=== PATIENT | female | born 1970 | race Caucasian/White ===

== ENCOUNTER → 2018-06-08 14:11 | Outpatient (CLI) | payer BC, SELFPAY ==
--- NOTE | 2018-06-08 14:13 | DI.US.S_ITS ---
PROCEDURE: US BREAST RT LIMITED COMPARISON: None. INDICATIONS: RIGHT BREAST LUMP FINDINGS: IMPRESSION: Dictated by: Meghan Stephenson M.D. on 06/08/2018 at 15:31 Approved by: Meghan Stephenson M.D. on 06/08/2018 at 15:33
--- NOTE | 2018-06-08 15:33 | DI.US.S_ITS ---
Patient Name: DIONNE MUSE date: 1970 Sex: F Attending Physician: Wilmar Indications: Date: 06/08/2018 14:16 At the request of: CHRISTINA ROJAS Procedure: US breast RT limited ULTRASOUND OF RIGHT BREAST: 06/08/2018 CLINICAL: Palpable right breast lump. Comparison is made to exams dated: 07/27/2017 ultrasound, 07/27/2017 mammogram, mammogram, 06/12/2014 mammogram, and 05/20/2013 mammogram - [facility]. Color flow ultrasound of the right breast was performed on the areas of interest. Moe scale images of the real-time examination were reviewed. There is a benign 3.9 cm x 2.7 cm x 3.4 cm oval simple cyst in the right breast at 11 o'clock middle depth. This oval simple cyst is anechoic with posterior acoustic enhancement. This correlates as palpated. Color flow imaging demonstrates that there is no increase in vascularity. IMPRESSION: BENIGN There is no sonographic evidence of malignancy. The 3.9 cm x 2.7 cm x 3.4 cm oval simple cyst in the right breast is benign. This exam was interpreted at Station ID: [id number]. Electronically Signed By: Meghan okeefe/:06/08/2018 15:33:36 letter sent: Normal Exam Ultrasound BI-RADS: 2 Benign
== END ==
PROVIDERS: Visit Provider Surgery
DX: N60.01 Solitary cyst of right breast (principal)
CPT/HCPCS: 76642

== ENCOUNTER → 2018-08-16 14:43 | Outpatient (CLI) | payer BC, SELFPAY ==
--- NOTE | 2018-08-16 | DI.MG.S_ITS ---
BILATERAL DIGITAL DIAGNOSTIC MAMMOGRAM 3D/2D POST LUMPECTOMY: 08/16/2018 CLINICAL: Right breast lumps. Comparison is made to exams dated: 09/06/2017 localization, 07/27/2017 mammogram, 08/13/2015 mammogram, and 07/27/2017 [facility]. The tissue of both breasts is extremely dense, which lowers the sensitivity of mammography. There is a high density mass in the right breast at 11 o'clock posterior depth. This is not significantly changed from the mammogram dated 07/27/17 and correlates as palpated. No other significant masses, calcifications, or other findings are seen in either breast. IMPRESSION: INCOMPLETE: NEEDS ADDITIONAL IMAGING EVALUATION The high density mass in the right breast is indeterminate. An ultrasound is recommended. This exam was interpreted at Station ID: [id number]. NOTE: For mammograms, a report in lay terms will be sent to the patient. Approximately 15% of breast malignancies will not be visualized mammographically. In the management of a palpable breast mass, a negative mammogram must not discourage biopsy of a clinically suspicious lesion. Electronically Signed By: Meghan Stephenson M.D. lk/:08/16/2018 15:42:01 copy to: Raya Aviles copy to: Barbara Urban letter sent: Additional Imaging Needed ACR BI-RADS Category 0: Incomplete 3340F
--- NOTE | 2018-08-16 | DI.US.S_ITS ---
ULTRASOUND OF RIGHT BREAST: 08/16/2018 CLINICAL: Palpable right breast lump. Comparison is made to exams dated: 08/16/2018 mammogram, 06/08/2018 ultrasound, and 07/27/2017 [facility]. Color flow ultrasound of the right breast was performed on the areas of interest. Moe scale images of the real-time examination were reviewed. There is a benign simple cyst in the right breast at 11 o'clock posterior depth. This abnormality is decreased in size from the 06/08/18 ultrasound and correlates as palpated. There also is a benign simple cyst in the right breast at 12 o'clock posterior depth. This abnormality is decreased in size from the 06/08/18 ultrasound. IMPRESSION: BENIGN There is no sonographic evidence of malignancy. The cyst in the right breast at 11 o'clock posterior depth is benign. THe cyst in the right breast at 12 o'clock posterior depth is benign. A 1 year screening mammogram is recommended. This exam was interpreted at Station ID: [id number]. Electronically Signed By: Meghan Stephenson M.D. lk/:08/16/2018 16:30:03 copy to: Raya Aviles copy to: Barbara Urban letter sent: Normal Exam Ultrasound BI-RADS: 2 Benign
== END ==
PROVIDERS: Visit Provider Internal Medicine Hematology & Oncology
DX: R92.2 Inconclusive mammogram (principal); N63.11 Unspecified lump in the right breast, upper outer quadrant
CPT/HCPCS: 76642; 77066; G0279

== ENCOUNTER → 2018-08-30 13:08 | Outpatient (CLI) | payer BC, SELFPAY ==
[2018-08-30 13:41] LABS: Add Manual Diff / Slide Review NO; Basophils Percent Auto 0.7 % (0-2); Eosinophils Percent Auto 3.5 % (2-4); Hematocrit 39.5 % (36-46); Hemoglobin 13.5 g/dL (12.0-16.0); Lymphocytes Percent Auto 25.9 % (25-40); Mean Corpuscular HGB Conc 34.1 % (30-36); Mean Corpuscular Hemoglobin 31.4 PG (26-34); Monocytes Percent Auto 5.8 % (3-14); Neutrophils Absolute Auto 4100 /uL (3000-5900); Neutrophils Percent Auto 64.1 % (50-75); Platelet Count 231 X10^3/uL (150-400); Red Blood Cell Count 4.29 X10^6/uL (4.0-5.2); Red Cell Distribution Width 12.3 % (11.6-14.8); White Blood Cell Count 6.4 X10^3/uL (4.5-11.0)
[2018-08-30 13:51] LABS: HEMOLYSIS < 15 (0-50); Iron 136 ug/dL (37-170)
[2018-08-30 14:03] LABS: Percent Iron Saturation 48 % (15-50); Total Iron Binding Capacity 281 ug/dL (265-497); Transferrin 231 mg/dL (206-381)
[2018-08-30 14:22] LABS: Thyroid Stimulating Hormone 1.09 uIU/mL (0.47-4.68)
== END ==
PROVIDERS: PCP Physician Assistant; Visit Provider Physician Assistant
DX: R53.83 Other fatigue (principal)
CPT/HCPCS: 36415; 82728; 83540; 83550; 84439; 84443; 85025

== ENCOUNTER → 2019-08-04 12:58 | Outpatient (CLI) | payer BC, SELFPAY | PROVIDERS: PCP Physician Assistant; Visit Provider Physician Assistant | DX: L08.9 Local infection of the skin and subcutaneous tissue, unspecified (principal) | CPT/HCPCS: 87070; 87075; 87205 ==

== ENCOUNTER → 2019-08-06 17:03 | Outpatient (CLI) | payer BC, SELFPAY | PROVIDERS: PCP Physician Assistant; Visit Provider Physician Assistant | DX: L08.9 Local infection of the skin and subcutaneous tissue, unspecified (principal) | CPT/HCPCS: 87070; 87075; 87205 ==

== ENCOUNTER → 2019-08-13 16:26 | Outpatient (CLI) | payer BC, SELFPAY ==
[2019-08-13 17:34] LABS: Add Manual Diff / Slide Review NO; Basophils Absolute Auto 100 /uL (0-100); Basophils Percent Auto 1.2 % (0-2); Eosinophils Absolute Auto 300 /uL (0-450); Eosinophils Percent Auto 5.3 % (2-4); Hematocrit 40.5 % (36-46); Hemoglobin 13.8 g/dL (12.0-16.0); Lymphocytes Absolute Auto 1700 /uL (1100-4500); Lymphocytes Percent Auto 28.7 % (25-40); Mean Corpuscular HGB Conc 34.1 % (30-36); Mean Corpuscular Hemoglobin 31.8 PG (26-34); Mean Corpuscular Volume 93.1 fL (80-100); Monocytes Absolute Auto 400 /uL (0-900); Neutrophils Absolute Auto 3500 /uL (1500-7000); Neutrophils Percent Auto 57.8 % (50-75); Platelet Count 239 X10^3/uL (150-400); Red Blood Cell Count 4.35 X10^6/uL (4.0-5.2); Red Cell Distribution Width 12.1 % (11.6-14.8)
== END ==
PROVIDERS: Family Provider Physician Assistant; PCP Physician Assistant; Visit Provider Hospitalist
DX: L08.9 Local infection of the skin and subcutaneous tissue, unspecified (principal)
CPT/HCPCS: 36415; 85025

== ENCOUNTER → 2019-09-18 14:46 | Outpatient (CLI) | payer BC, SELFPAY ==
--- NOTE | 2019-09-18 | DI.MG.S_ITS ---
BILATERAL DIGITAL DIAGNOSTIC MAMMOGRAM 3D/2D: 09/18/2019 CLINICAL: Left breast cancer. Comparison is made to exams dated: 08/16/2018 mammogram, 07/27/2017 mammogram, and 08/13/2015 mammogram - [facility]. The tissue of both breasts is heterogeneously dense. This may lower the sensitivity of mammography. There are benign calcifications in both breasts. There also are benign post operative findings in the left breast. No significant masses, calcifications, or other findings are seen in either breast. There has been no significant interval change. IMPRESSION: There is no mammographic evidence of malignancy. A 1 year screening mammogram is recommended. This exam was interpreted at Station ID: [id number]. NOTE: For mammograms, a report in lay terms will be sent to the patient. Approximately 15% of breast malignancies will not be visualized mammographically. In the management of a palpable breast mass, a negative mammogram must not discourage biopsy of a clinically suspicious lesion. Electronically Signed By: Meghan okeefe/percy:09/18/2019 15:22:58 copy to: Raya Aviles copy to: Barbara Urban letter sent: Normal Exam ACR BI-RADS Category 2: Benign Finding(s) 3342F
== END ==
PROVIDERS: PCP Physician Assistant; Visit Provider Internal Medicine Hematology & Oncology
DX: C50.912 Malignant neoplasm of unspecified site of left female breast (principal); R92.1 Mammographic calcification found on diagnostic imaging of breast
CPT/HCPCS: 77066; G0279

== ENCOUNTER → 2020-01-04 09:05 | Outpatient (CLI) | payer BC, SELFPAY ==
[2020-01-04 09:50] LABS: Influenza A - CEPHEID Flu A NEGATIVE (NEGATIVE); Influenza B - CEPHEID Flu B NEGATIVE (NEGATIVE)
== END ==
PROVIDERS: PCP Physician Assistant; Visit Provider Physician Assistant
DX: R68.89 Other general symptoms and signs (principal)
CPT/HCPCS: 87502

== ENCOUNTER → 2020-07-10 09:16 | Outpatient (CLI) | payer BC, SELFPAY ==
--- NOTE | 2020-07-10 09:18 | DI.US.S_ITS ---
PROCEDURE: US ABDOMEN LIMITED INDICATIONS: ELEVATED LFT'S TECHNIQUE: Real-time focused scanning was performed of the abdomen, with image documentation. COMPARISON: None. FINDINGS: The liver demonstrates normal size. The liver demonstrates generalized increased echogenicity. This decreases ultrasound sensitivity for detection of hepatic masses. No findings of gallstones or sludge are seen. The gallbladder wall is not thickened, measuring 3 mm or less. No specific pericholecystic fluid is seen. The sonographic Valladares sign is negative. There is no biliary dilatation, the common bile duct measures 5 mm. The visualized pancreas is unremarkable. IMPRESSION: The liver demonstrates increased echogenicity. This finding is nonspecific, yet it is most commonly attributed to fatty infiltration. The gallbladder demonstrates a normal sonographic appearance. No biliary dilatation is seen. Dictated by: Koby Ward M.D. on 07/10/2020 at 11:30 Approved by: Koby Ward M.D. on 07/10/2020 at 11:30
== END ==
PROVIDERS: PCP Physician Assistant; Referring Provider Internal Medicine Hematology & Oncology; Visit Provider Internal Medicine Hematology & Oncology
DX: R79.89 Other specified abnormal findings of blood chemistry (principal); C50.111 Malignant neoplasm of central portion of right female breast; Z17.0 Estrogen receptor positive status [ER+]
CPT/HCPCS: 76705

== ENCOUNTER → 2020-10-02 08:26 | Outpatient (CLI) | payer BC, SELFPAY ==
--- NOTE | 2020-10-02 | DI.MG.S_ITS ---
BILATERAL DIGITAL SCREENING MAMMOGRAM 3D/2D WITH CAD: 10/02/2020 CLINICAL: Routine screening. Personal history of left breast cancer. Family history of breast cancer. Comparison is made to exams dated: 09/18/2019 mammogram, 08/16/2018 mammogram, and 07/27/2017 mammogram - [facility]. The tissue of both breasts is heterogeneously dense. This may lower the sensitivity of mammography. Current study was also evaluated with a Computer Aided Detection (CAD) system. There are stable benign cysts in the right breast. There also are stable benign calcifications in both breasts. Additionally, there are benign post operative findings in the left breast. No significant masses, calcifications, or other findings are seen in either breast. There has been no significant interval change. IMPRESSION: BENIGN There is no mammographic evidence of malignancy. A 1 year screening mammogram is recommended. This exam was interpreted at Station ID: [id number]. NOTE: For mammograms, a report in lay terms will be sent to the patient. Approximately 15% of breast malignancies will not be visualized mammographically. In the management of a palpable breast mass, a negative mammogram must not discourage biopsy of a clinically suspicious lesion. Electronically Signed By: Itz ruiz/percy:10/02/2020 09:49:46 copy to: Raya Aviles copy to: Barbara Urban letter sent: Normal Exam ACR BI-RADS Category 2: Benign Finding(s) 3342F
== END ==
PROVIDERS: PCP Family Medicine; Referring Provider Family Medicine; Visit Provider Internal Medicine Hematology & Oncology
DX: Z12.31 Encounter for screening mammogram for malignant neoplasm of breast (principal); Z85.3 Personal history of malignant neoplasm of breast; Z80.3 Family history of malignant neoplasm of breast
CPT/HCPCS: 77063; 77067

== ENCOUNTER 2021-06-17 16:17 | Observation (INO) | payer BC, SELFPAY ==
[2021-06-17 16:38] VITALS: BP 134/60; PULSE 77; RESP 16; TEMP 36.2; O2SAT 100; BMI 29.7
[2021-06-17] MEDS: ONDANSETRON 4 MG/2 ML INJ IV (17:26)
[2021-06-17] MEDS: SODIUM CHLORIDE 0.9% 1,000 ML 1000 ML IV (17:26)
[2021-06-17 17:28] LABS: COVID19 -Nasal RAPID Negative (Negative)
--- NOTE | 2021-06-17 17:29 | PC.NURSE ---
No bloody stool or emesis noted by patient
[2021-06-17 17:38] LABS: Alanine Aminotransferase 62 IU/L (<35); Albumin 4.4 g/dL (3.5-5.0); Albumin Globulin Ratio 1.4 (1.0-2.8); Alkaline Phosphatase 63 U/L (38-126); Aspartate Aminotransferase 59 IU/L (14-36); BUN Creatinine Ratio 19.6 (6-22); Bilirubin Total 1.1 mg/dL (0.2-1.3); Blood Urea Nitrogen 11 mg/dL (7-17); Calcium 9.4 mg/dL (8.4-10.2); Carbon Dioxide 22 mmol/L (22-32); Chloride 104 mmol/L (98-107); Estimated Glomerular Filt Rate > 60.0 mL/min (>60); Globulin 3.2 g/dL (1.7-4.1); Glucose 131 mg/dL (70-100); HEMOLYSIS < 15 (0-50); Lipase 37 U/L (23-300); Potassium 3.7 mmol/L (3.4-5.1); Sodium 137 mmol/L (137-145); Total Protein 7.6 g/dL (6.3-8.2)
[2021-06-17 17:40] LABS: Add Manual Diff / Slide Review NO; Basophils Absolute Auto 0 /uL (0-100); Basophils Percent Auto 0.3 % (0-2); Eosinophils Absolute Auto 0 /uL (0-450); Eosinophils Percent Auto 0.3 % (2-4); Hematocrit 41.6 % (36-46); Hemoglobin 14.2 g/dL (12.0-16.0); Lymphocytes Absolute Auto 1400 /uL (1100-4500); Lymphocytes Percent Auto 10.2 % (25-40); Mean Corpuscular HGB Conc 34.2 % (30-36); Mean Corpuscular Hemoglobin 32.2 PG (26-34); Monocytes Absolute Auto 500 /uL (0-900); Monocytes Percent Auto 3.4 % (3-14); Neutrophils Absolute Auto 11700 /uL (1500-7000); Neutrophils Percent Auto 85.8 % (50-75); Platelet Count 231 X10^3/uL (150-400); Red Blood Cell Count 4.42 X10^6/uL (4.0-5.2); Red Cell Distribution Width 12.2 % (11.6-14.8); White Blood Cell Count 13.7 X10^3/uL (4.5-11.0)
--- NOTE | 2021-06-17 19:24 | ED.GENADULT ---
HPI - General Adult General Chief complaint: Abdominal Pain Stated complaint: Severe Stomach Cramps, Vomiting Time Seen by Provider: 06/17/21 19:19 Source: patient Mode of arrival: Ambulatory Limitations: no limitations History of Present Illness HPI narrative: Patient is a 50-year-old female who is here today for stomach cramping and vomiting and fevers and chills and nausea. She states that last evening she went to bed not feeling very well but this was a very vague generalized feeling. Woke up this morning with nausea and then at around noon today started to develop fevers and vomiting and chills and lower abdominal discomfort. No vaginal bleeding. No diarrhea however with further questioning she states she has had diarrhea for a while and is taking Imodium for this. She does have a history of breast cancer. Is on tamoxifen. She states the vomiting did seem to help her abdominal discomfort somewhat. No rashes. Has not tried anything for symptoms prior to arrival. Related Data Home Medications Medication Instructions Recorded Confirmed fluticasone propionate 50 1 spray INTRANASAL QDAY #0 09/04/17 06/18/21 mcg/actuation nasal spray,suspension (Flonase Allergy Relief) tamoxifen 20 mg tablet 20 mg PO BEDTIME #30 02/02/18 06/18/21 gabapentin 300 mg capsule 300 mg PO DAILY 06/17/21 06/18/21 simethicone 125 mg capsule (Gas-X 125 mg PO BID PRN 06/18/21 06/18/21 Extra Strength) Previous Rx's Medication Instructions Recorded lorazepam 1 mg tablet 1 mg PO Q6HP PRN #10 tab 06/15/21 venlafaxine 37.5 mg 37.5 mg PO DAILY #90 cap 06/15/21 capsule,extended release 24 hr Allergies Allergy/AdvReac Type Severity Reaction Status Date / Time doxycycline [DOXYCYCLINE] Allergy Severe EXTREME Verified 10/02/20 10:40 CONSTIPATION codeine [CODEINE] Allergy Intermediate VOMITING Verified 10/02/20 10:40 tramadol [TRAMADOL] AdvReac Severe SWELLING Verified 10/02/20 10:40 IN THROAT Review of Systems Constitutional Constitutional: Reports chills, Reports fever(s) and Reports malaise Cardiovascular Cardiovascular: Denies chest pain and Denies dyspnea Respiratory Respiratory: Denies dyspnea Gastrointestinal Gastrointestinal: Reports as per HPI Genitourinary Genitourinary: Denies abnormal vaginal bleeding and Denies dysuria Musculoskeletal Musculoskeletal: Reports system reviewed and no additional complaints, except as documented Integumentary/Breasts Skin/Breast: Reports system reviewed and no additional complaints, except as documented Neurologic Neurologic: Reports system reviewed and no additional complaints, except as documented Psychiatric Psychiatric: Reports system reviewed and no additional complaints, except as documented Hematologic/Lymphatic On Anticoagulants: No Allergic/Immunologic Allergic/Immunologic: Reports system reviewed and no additional complaints, except as documented Patient History Medical History Chronic diarrhea Depression 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 Smoking Status: Smoker, status unknown tobacco type: cigarettes alcohol intake frequency: 3 or more drinks per day Alcohol type: beer Substance Use Type: marijuana Exam Initial Vital Signs Initial Vital Signs: Vital Signs Temperature 97.1 F L 06/17/21 16:38 Pulse Rate 77 06/17/21 16:38 Respiratory Rate 16 06/17/21 16:38 Blood Pressure 134/60 06/17/21 16:38 Pulse Oximetry 100 06/17/21 16:38 Const General: cooperative, healthy appearing and comfortable [facility] Head: normal to inspection and normocephalic Eyes General: appearance normal, both eyes and all related structures Chest Chest: normal inspection of the chest Resp Effort & Inspection: normal respiratory effort Auscultation: clear to auscultation bilaterally Cardio Rate: regular rate Rhythm: regular rhythm GI Inspection: normal to inspection and non-distended Palpation: soft, No firm and tender (Lower abdomen, right greater than left) Skin General: no rashes or lesions noted Neuro General: patient alert, patient awake, patient oriented x3 and moves all extremities Extrem General: normal to inspection and capillary refill normal Psych Appearance: grossly normal and well kempt Course Orders Ordered: ED Orders 06/17/21 16:55 COVID19 -Nasal swab/Pre-Proc Stat 06/17/21 17:15 Complete Blood Count AUTO DIFF Stat Comprehensive Metabolic Panel Stat Lactate (Lactic Acid) Stat Lipase Stat Procalcitonin Stat 06/17/21 19:25 CT abdomen pelvis w con Stat 06/17/21 20:14 Consult to General Surgery Stat 06/17/21 20:40 Urine Culture Stat Urine Microscopic Stat 06/17/21 20:45 COVID19 - ADMIT (RESERVATIONS MANAGER swab/PCR) Stat Acetaminophen (Acetaminophen 325 Mg Tablet) 650 mg PO Q6HR PRN PRN Reason: Fever/Mild Pain (1-3) Gabapentin (Gabapentin 300 Mg Capsule) 300 mg PO BEDTIME [facility] Last Admin: 06/18/21 01:05 Dose: 300 mg Documented by: LEAH Sodium Chloride (Normal Saline 0.9%) 1,000 mls @ 100 mls/hr IV CONT ANGEL Last Infusion: 06/18/21 00:45 Dose: 100 mls/hr Documented by: Admin: 06/17/21 22:41 Dose: 125 mls/hr Documented by: SUSHIL Piperacillin Sod/Tazobactam (Sod 3.375 gm/ Sodium Chloride) 100 mls @ 25 mls/hr IV Q8H ANGEL Naloxone HCl (Naloxone 0.4 Mg/Ml Vial) 0.2 mg IV Q2MIN PRN PRN Reason: Opiate Reversal Ondansetron HCl (Ondansetron 4 Mg/2 Ml Inj) 4 mg IV Q6HR PRN PRN Reason: Nausea And Vomiting Pantoprazole Sodium (Pantoprazole 40 Mg Vial) 40 mg IV DAILY ANGEL Tamoxifen Citrate (Tamoxifen 10 Mg Tablet) 20 mg PO BEDTIME ANGEL Last Admin: 06/18/21 00:33 Dose: 20 mg Documented by: LEAH Venlafaxine HCl (Venlafaxine Er 37.5 Mg Cap) 37.5 mg PO BEDTIME ANGEL Last Admin: 06/18/21 00:33 Dose: 37.5 mg Documented by: LEAH Discontinued Medications Acetaminophen (Acetaminophen 325 Mg Tablet) 650 mg PO NOW ONE Stop: 06/17/21 23:04 Last Admin: 06/17/21 23:07 Dose: 650 mg Documented by: JYOTHI Enoxaparin Sodium (Enoxaparin 40 Mg/0.4 Ml Syringe) 40 mg SUBCUT DAILY ANGEL Gabapentin (Gabapentin 300 Mg Capsule) 300 mg PO BEDTIME ANGEL Sodium Chloride (Normal Saline 0.9%) 1,000 mls @ 1,000 mls/hr IV BOLUS ONE Stop: 06/17/21 18:24 Last Infusion: 06/17/21 19:22 Dose: 0 mls/hr Documented by: Admin: 06/17/21 17:26 Dose: 1,000 mls/hr Documented by: AYAD Piperacillin Sod/Tazobactam (Sod 4.5 gm/ Sodium Chloride) 100 mls @ 200 mls/hr IV NOW ONE Stop: 06/17/21 22:27 Last Infusion: 06/17/21 23:35 Dose: 0 mls/hr Documented by: Admin: 06/17/21 22:41 Dose: 200 mls/hr Documented by: SUSHIL Sodium Chloride (Normal Saline 0.45%) 1,000 mls @ 100 mls/hr IV CONT ANGEL Last Infusion: 06/18/21 00:45 Dose: 0 mls/hr Documented by: Admin: 06/17/21 23:58 Dose: 100 mls/hr Documented by: LEAH Lorazepam (Lorazepam 2 Mg/Ml Inj) 0.5 mg IV NOW ONE Stop: 06/17/21 19:34 Last Admin: 06/17/21 19:39 Dose: 0.5 mg Documented by: ALEM Ondansetron HCl (Ondansetron 4 Mg/2 Ml Inj) 4 mg IV NOW ONE Stop: 06/17/21 16:46 Last Admin: 06/17/21 17:26 Dose: 4 mg Documented by: AYAD Ondansetron HCl (Ondansetron 4 Mg/2 Ml Inj) 4 mg IV Q8HR PRN PRN Reason: Nausea And Vomiting Vital Signs Vital signs: Vital Signs - 8 hr 06/17/21 16:38 Temperature 97.1 F L Pulse Rate 77 Respiratory Rate 16 Blood Pressure 134/60 Pulse Oximetry 100 Medical Decision Making Medical Records Medical records reviewed: Yes I reviewed the patient's medical records. Lab Data Lab results reviewed: Yes I reviewed the patient's lab results. Result diagrams: 06/17/21 17:15 06/17/21 17:15 Labs: Lab Results 06/17/21 06/17/21 06/17/21 Range/Units 16:55 17:15 17:15 WBC 13.7 H (4.5-11.0) X10^3/uL RBC 4.42 (4.0-5.2) X10^6/uL Hgb 14.2 (12.0-16.0) g/dL Hct 41.6 (36-46) % MCV 94.0 (80-100) fL MCH 32.2 (26-34) PG MCHC 34.2 (30-36) % RDW 12.2 (11.6-14.8) % Plt Count 231 (150-400) X10^3/uL Neut % (Auto) 85.8 H (50-75) % Lymph % (Auto) 10.2 L (25-40) % [place] % (Auto) 3.4 (3-14) % Eos % (Auto) 0.3 L (2-4) % Baso % (Auto) 0.3 (0-2) % Neut # (Auto) 75643 H (4072-9721) /uL Lymph # (Auto) 1400 (9572-0807) /uL [place] # (Auto) 500 (0-900) /uL Eos # (Auto) 0 (0-450) /uL Baso # (Auto) 0 (0-100) /uL Sodium 137 (137-145) mmol/L Potassium 3.7 (3.4-5.1) mmol/L Chloride 104 (98-107) mmol/L Carbon Dioxide 22 (22-32) mmol/L BUN 11 (7-17) mg/dL Creatinine 0.56 (0.52-1.04) mg/dL Estimated GFR > 60.0 (>60) mL/min BUN/Creatinine Ratio 19.6 (6-22) Glucose 131 H (70-100) mg/dL Lactate (0.7-2.1) mmol/L Calcium 9.4 (8.4-10.2) mg/dL Total Bilirubin 1.1 (0.2-1.3) mg/dL AST 59 H (14-36) IU/L ALT 62 H (<35) IU/L Alkaline Phosphatase 63 (38-126) U/L Total Protein 7.6 (6.3-8.2) g/dL Albumin 4.4 (3.5-5.0) g/dL Globulin 3.2 (1.7-4.1) g/dL Albumin/Globulin Ratio 1.4 (1.0-2.8) Lipase 37 (23-300) U/L Procalcitonin (<0.5) ng/mL Urine RBC (0-5/HPF) Urine WBC (0-5/HPF) Ur Squamous Epith Cells (0-5/HPF) Urine Bacteria (None) Urine Mucus (Negative) Ur Culture Indicated? SARS-CoV-2 (PCR) Negative (Negative) 06/17/21 06/17/21 06/17/21 Range/Units 17:15 17:15 20:40 WBC (4.5-11.0) X10^3/uL RBC (4.0-5.2) X10^6/uL Hgb (12.0-16.0) g/dL Hct (36-46) % MCV (80-100) fL MCH (26-34) PG MCHC (30-36) % RDW (11.6-14.8) % Plt Count (150-400) X10^3/uL Neut % (Auto) (50-75) % Lymph % (Auto) (25-40) % [place] % (Auto) (3-14) % Eos % (Auto) (2-4) % Baso % (Auto) (0-2) % Neut # (Auto) (1859-9761) /uL Lymph # (Auto) (7157-5897) /uL [place] # (Auto) (0-900) /uL Eos # (Auto) (0-450) /uL Baso # (Auto) (0-100) /uL Sodium (137-145) mmol/L Potassium (3.4-5.1) mmol/L Chloride (98-107) mmol/L Carbon Dioxide (22-32) mmol/L BUN (7-17) mg/dL Creatinine (0.52-1.04) mg/dL Estimated GFR (>60) mL/min BUN/Creatinine Ratio (6-22) Glucose (70-100) mg/dL Lactate 2.5 H (0.7-2.1) mmol/L Calcium (8.4-10.2) mg/dL Total Bilirubin (0.2-1.3) mg/dL AST (14-36) IU/L ALT (<35) IU/L Alkaline Phosphatase (38-126) U/L Total Protein (6.3-8.2) g/dL Albumin (3.5-5.0) g/dL Globulin (1.7-4.1) g/dL Albumin/Globulin Ratio (1.0-2.8) Lipase (23-300) U/L Procalcitonin 0.04 (<0.5) ng/mL Urine RBC 0-1/hpf (0-5/HPF) Urine WBC 10-30/hpf H (0-5/HPF) Ur Squamous Epith Cells 1-5 /hpf (0-5/HPF) Urine Bacteria Moderate (10-30) H (None) Urine Mucus 1+ H (Negative) Ur Culture Indicated? Specimen cultured SARS-CoV-2 (PCR) (Negative) 06/17/21 Range/Units 20:45 WBC (4.5-11.0) X10^3/uL RBC (4.0-5.2) X10^6/uL Hgb (12.0-16.0) g/dL Hct (36-46) % MCV (80-100) fL MCH (26-34) PG MCHC (30-36) % RDW (11.6-14.8) % Plt Count (150-400) X10^3/uL Neut % (Auto) (50-75) % Lymph % (Auto) (25-40) % [place] % (Auto) (3-14) % Eos % (Auto) (2-4) % Baso % (Auto) (0-2) % Neut # (Auto) (4716-8808) /uL Lymph # (Auto) (8915-7788) /uL [place] # (Auto) (0-900) /uL Eos # (Auto) (0-450) /uL Baso # (Auto) (0-100) /uL Sodium (137-145) mmol/L Potassium (3.4-5.1) mmol/L Chloride (98-107) mmol/L Carbon Dioxide (22-32) mmol/L BUN (7-17) mg/dL Creatinine (0.52-1.04) mg/dL Estimated GFR (>60) mL/min BUN/Creatinine Ratio (6-22) Glucose (70-100) mg/dL Lactate (0.7-2.1) mmol/L Calcium (8.4-10.2) mg/dL Total Bilirubin (0.2-1.3) mg/dL AST (14-36) IU/L ALT (<35) IU/L Alkaline Phosphatase (38-126) U/L Total Protein (6.3-8.2) g/dL Albumin (3.5-5.0) g/dL Globulin (1.7-4.1) g/dL Albumin/Globulin Ratio (1.0-2.8) Lipase (23-300) U/L Procalcitonin (<0.5) ng/mL Urine RBC (0-5/HPF) Urine WBC (0-5/HPF) Ur Squamous Epith Cells (0-5/HPF) Urine Bacteria (None) Urine Mucus (Negative) Ur Culture Indicated? SARS-CoV-2 (PCR) Negative (Negative) Urine Dip Bedside Urine Glucose Negative Bedside Urine Bilirubin - Negative Bedside Urine Ketone +++ 80 Urine Specific [place] 1.020 Bedside Urine Occult Blood - Negative Bedside Urine pH 6.0 Bedside Urine Protein +/- 15 Bedside Urine Urobilinogen - Negative Bedside Urine Nitrite - Negative Bedside Urine Leukocytes - Negative Esterase Point of care testing: Urine Dip Bedside Urine Glucose Negative Bedside Urine Bilirubin - Negative Bedside Urine Ketone +++ 80 Urine Specific [place] 1.020 Bedside Urine Occult Blood - Negative Bedside Urine pH 6.0 Bedside Urine Protein +/- 15 Bedside Urine Urobilinogen - Negative Bedside Urine Nitrite - Negative Bedside Urine Leukocytes - Negative Esterase Imaging Data CT scan - abdomen/pelvis: Radiologist's Impression: [address] [id number] Scan ReportSigned Patient: Mary Jane Ortega LMR#: [id number]: [id number]:[id number]/Sex: 50 / FDate of Service: 06/17/21Loc: EDAccession Number: [id number] Procedure: CT abdomen pelvis w con Ordering Provider: Wojciech Campos D.O. PROCEDURE: CT ABDOMEN PELVIS W CON INDICATIONS: Bilateral lower abdominal pain TECHNIQUE: After the administration of intravenous contrast, axial sections acquired from the lung bases to the pubic symphysis. Coronal and sagittal reformats were performed. For radiation dose reduction, the following was used: automated exposure control, adjustment of mA and/or kV according to patient size. COMPARISON: [facility], CT, CT BHANDARI, 11/28/2017, 15:30. FINDINGS: Image quality: Excellent. Lung bases: In the interval since the prior exam, there is a 3 mm nodule in the lateral aspect of the right lower lobe series 3 image 8. A 5 mm nodule is present in the posterior right lower lobe series 3, image 12. Punctate right middle lobe nodule is present on series 3 image. Heart: No significant findings. ABDOMEN: Liver: Liver is enlarged with prominent steatosis. Gallbladder: The gallbladder is unremarkable. Biliary ducts: Unremarkable. Pancreas: Unremarkable. Spleen: Unremarkable. Adrenal Glands: Unremarkable. Kidneys and Ureters: Unremarkable. Stomach and Bowel: Stomach, small bowel loops, and colon are nonobstructive. There is a diffuse appearance of colonic thickening most severe in the ascending, transverse and descending colon with mild pericolonic inflammatory change. In addition, there is marked thickening in the region of the appendix and inflammatory change as well as scattered subcentimeter lymph nodes. Normal appearing appendix is not definitively identified. In addition, Peritoneum: Minimal dependent pelvic fluid is noted. No free air. Ventral Wall: Fat containing ventral hernia is present with rectus diastasis measuring 1.2 cm. Abdominal Nodes: No retroperitoneal or mesenteric adenopathy by size criteria. Vessels: Aorta and inferior vena cava are normal in size. PELVIS: Pelvic Organs: Within the lower uterine segment extending to the cervix, there is a heterogeneously enhancing mass measuring 6.3 cm AP x 8.3 cm transverse. Multiple areas of central low attenuation are identified. There is no appreciable surrounding inflammatory change. Bladder: Unremarkable. Pelvic Nodes: No enlarged lymph nodes. Miscellaneous: No hernias are seen. Bones: Unremarkable. IMPRESSION: 1. Diffuse appearance of colonic thickening with pericolonic stranding most suggestive of diffuse colitis. This could be secondary to infection, inflammation or potentially ischemic. 2. Fat stranding with ill-defined soft tissue density in the right lower quadrant with adjacent subcentimeter lymph nodes. This would be in the expected location of the appendix and appears to represent appendiceal inflammation such as appendicitis. This could be prior appendicitis or secondary inflammation from colitis. 3. Heterogeneous mass with low attenuation in the lower uterine segment extending to the cervix. Appearance is suggestive of a low lying fibroid with either areas of necrosis or superimposed nabothian cysts. Pelvic ultrasound may be helpful for additional evaluation. 4. Right subcentimeter pulmonary nodules, overall nonspecific and not visualized in 2018. The largest measures 5 mm. Recommend interval follow-up as below. Fleischner Society criteria for SOLID lung nodule followup. Nodule size (mm)Low-risk patientHigh-risk patient<6 (single or multiple)No routine followup.Optional CT at 12 months. 6-8 (single or multiple)CT at 6-12 months, then optional CT at 18-24 mo.CT at 6-12 months, then CT at 18-24 months. >8 (single)CT, PET-CT, or biopsy at 3 months. Same as for low-risk pts. >8 (multiple)CT at 3-6 months, then optional CT at 18-24 mo.CT at 3-6 months, then CT at 18-24 months. Recommendations do not apply to lung cancer screening, patients with immunosuppression, or patients with known primary cancer. Dictated by: Ketty Luna M.D. on 06/17/2021 at 19:51 Approved by: Ketty Luna M.D. on 06/17/2021 at 20:04 [facility] Narrative Medical decision making narrative: Patient does have a leukocytosis and a CT scan which does show a diffuse colitis. This could explain leukocytosis and also explain the diarrhea that she has been having. She does have lower abdominal discomfort with right lower quadrant being worse than the left lower quadrant. No definitive appendicitis seen on the exam. I did discuss the case with Dr. Benavides with General surgery who evaluated the patient to the ER who states that given her presentation and the CT scan that she had to be treated for the colitis first. He was not convince the patient had appendicitis. Patient was given Zosyn. Given fluids. Discussed the case with NATALI Messina [facility] hospitalist who will admit for further evaluation and treatment. The admitting team was also notified of the incidental findings of the lung nodules on the CT scan. I did discuss the reason for the admission with the patient. She expressed understanding and agreement. Discharge Plan Departure Patient Disposition: Admitted as Observation Clinical Impression: Colitis, Abdominal pain, Lung nodule Admit Date/Time: 06/17/21 22:37 Admit Provider: Yue Messina
[2021-06-17] MEDS: LORazepam 2 MG/ML INJ 0.5 MG IV (19:39)
[2021-06-17 21:15] LABS: RBC Urine 0-1/HPF (0-5/HPF)
[2021-06-17 21:16] LABS: Bacteria Urine Moderate (10-30); Culture Indicated Urine Specimen Cultured; Mucus Urine 1+ (Negative); Squamous Epithelial Cell Urine 1-5 /HPF (0-5/HPF); WBC Urine 10-30/HPF (0-5/HPF)
[2021-06-17 22:04] LABS: COVID19 - ADMIT (NP swab/PCR) Negative (Negative)
--- NOTE | 2021-06-17 22:10 | PC.NURSE ---
Dr Benavides at bedside
[2021-06-17] MEDS: PIPERACILLIN/TAZO 4.5 GM in SODIUM CHLORIDE 0.9% 100 ML 200 ML IV (22:41)
[2021-06-17] MEDS: SODIUM CHLORIDE 0.9% 1,000 ML 125 ML IV (22:41)
--- NOTE | 2021-06-17 22:50 | PM.CN ---
History of Present Illness Consult details Chief complaint: Severe Stomach Cramps, Vomiting Narrative: I was asked to see this patient by Dr. Acevedo in the emergency room. Patient is a woman who has had months and months of diarrhea often up to 5 watery stools a day. It only slowed down when she began to take Imodium. She has not had any stool studies performed. She is under treatment for left-sided breast cancer with tamoxifen.(patient apparently had a lumpectomy sentinel node biopsy and radiation in the past. She is treated by Dr. Quintanilla at [facility]) At some point she developed pain in her across her lower abdomen as well. She is not the best historian when it comes to time lines. It is not clear to me but I think this was a fairly recent addition to her symptoms, though she has had chronic pain in her abdomen as she said for months and months. She has vomited. No black or bloody bowel movements that she is aware of. When she vomited however she did notice that it was black. As best I can tell she has only vomited once in the past. The patient is had a sling procedure performed. She has had no other abdominal operations. She has had 2 colonoscopies. The 1st was done for rectal bleeding and she was found to have polyps. The 2nd follow-up colonoscopy 5 years later was negative for polyps. This study was performed before the onset of her abdominal pain and diarrhea. Meds Home Medications and Allergies Home Medications Medication Instructions Recorded Confirmed Type fluticasone propionate 50 1 spray INTRANASAL QDAY #0 09/04/17 10/02/20 History mcg/actuation nasal spray,suspension (Flonase Allergy Relief) tamoxifen 20 mg tablet 20 mg PO QDAY #30 02/02/18 10/02/20 History gabapentin 300 mg tablet See Rx Instructions PO DAILY 12/27/18 06/15/21 History gabapentin 300 mg capsule 300 mg PO TID #270 cap 06/15/21 06/15/21 Rx lorazepam 1 mg tablet 1 mg PO Q6HP PRN #10 tab 06/15/21 06/15/21 Rx venlafaxine 37.5 mg 37.5 mg PO DAILY #90 cap 06/15/21 06/15/21 Rx capsule,extended release 24 hr Allergies Allergy/AdvReac Type Severity Reaction Status Date / Time doxycycline [DOXYCYCLINE] Allergy Severe EXTREME Verified 10/02/20 10:40 CONSTIPATION codeine [CODEINE] Allergy Intermediate VOMITING Verified 10/02/20 10:40 tramadol [TRAMADOL] AdvReac Severe SWELLING Verified 10/02/20 10:40 IN THROAT Review of Systems Review of Systems Narrative: Patient denies double vision. She does were glasses. No tooth aches or sore throats. She does have a Schatzki's ring and occasionally has trouble swallowing if she does not chew her food well. Patient has no known heart problems or chest pain. No asthma or shortness of breath. No black or bloody bowel movements. No seizures or blackouts. Exam Vital Signs (past 8 hours): - 06/17/21 16:38 Temperature 97.1 F L Pulse Rate 77 Respiratory Rate 16 Blood Pressure 134/60 Pulse Oximetry 100 Oxygen Delivery Method Room Air Narrative Exam Narrative: No apparent distress. Eyes are nonicteric. Pupils are dilated. There equal and reactive to light. Lungs are clear to auscultation without rales or rhonchi in equal percussion heart regular rate and rhythm without murmur gallop. Her abdomen is mildly protuberant soft. There is no guarding. She does have some tenderness principally in the suprapubic area but also in the right lower quadrant. It is milder tenderness in left lower quadrant. She is alert no or. Speech rate and content are appropriate. Affect is a little flat. Objective Imaging CT scan - abdomen: My impression: Thickening of the colon. There may be some stranding in the region of the cecum. I really do not identify the appendix. Labs Result Diagrams: 06/17/21 17:15 06/17/21 17:15 Labs: Laboratory Results - last 24 hr 06/17/21 06/17/21 06/17/21 16:55 17:15 17:15 WBC 13.7 H RBC 4.42 Hgb 14.2 Hct 41.6 MCV 94.0 MCH 32.2 MCHC 34.2 RDW 12.2 Plt Count 231 Neut % (Auto) 85.8 H Lymph % (Auto) 10.2 L [place] % (Auto) 3.4 Eos % (Auto) 0.3 L Baso % (Auto) 0.3 Neut # (Auto) 46330 H Lymph # (Auto) 1400 [place] # (Auto) 500 Eos # (Auto) 0 Baso # (Auto) 0 Sodium 137 Potassium 3.7 Chloride 104 Carbon Dioxide 22 BUN 11 Creatinine 0.56 Estimated GFR > 60.0 BUN/Creatinine Ratio 19.6 Glucose 131 H Calcium 9.4 Total Bilirubin 1.1 AST 59 H ALT 62 H Alkaline Phosphatase 63 Total Protein 7.6 Albumin 4.4 Globulin 3.2 Albumin/Globulin Ratio 1.4 Lipase 37 Urine RBC Urine WBC Ur Squamous Epith Cells Urine Bacteria Urine Mucus Ur Culture Indicated? SARS-CoV-2 (PCR) Negative 06/17/21 06/17/21 20:40 20:45 WBC RBC Hgb Hct MCV MCH MCHC RDW Plt Count Neut % (Auto) Lymph % (Auto) [place] % (Auto) Eos % (Auto) Baso % (Auto) Neut # (Auto) Lymph # (Auto) [place] # (Auto) Eos # (Auto) Baso # (Auto) Sodium Potassium Chloride Carbon Dioxide BUN Creatinine Estimated GFR BUN/Creatinine Ratio Glucose Calcium Total Bilirubin AST ALT Alkaline Phosphatase Total Protein Albumin Globulin Albumin/Globulin Ratio Lipase Urine RBC 0-1/hpf Urine WBC 10-30/hpf H Ur Squamous Epith Cells 1-5 /hpf Urine Bacteria Moderate (10-30) H Urine Mucus 1+ H Ur Culture Indicated? Specimen cultured SARS-CoV-2 (PCR) Negative Assessment & Plan Assessment and plan (1) Chronic diarrhea: Status: Acute (2) Colitis: Status: Acute (3) Abdominal pain: Status: Acute Assessment & Plan narrative: Not sure what to make of the patient's CT report. A patient with diarrhea for months and months probably does have enlarged lymph nodes. It is not surprising she has colitis on CT given that history. While she could have appendicitis I think we 1st most resuscitate her and re-evaluate her. Stool studies would be most helpful. Broad-spectrum antibiotics may be helpful. Colonoscopy may well be diagnostic but I think it may be unnecessary if we do have an abnormal stool study.
[2021-06-17 22:51] LABS: Lactate (Lactic Acid) 2.5 mmol/L (0.7-2.1)
[2021-06-17] MEDS: ACETAMINOPHEN 325 MG TABLET 650 MG PO (23:07)
[2021-06-17 23:09] LABS: Procalcitonin 0.04 ng/mL (<0.5)
[2021-06-17 23:11] VITALS: BP 127/66; PULSE 96; RESP 12; TEMP 37.6; O2SAT 98
[2021-06-17 23:40] VITALS: BP 127/66; PULSE 92; RESP 12; TEMP 37.6; O2SAT 98
[2021-06-17 23:50] VITALS: BP 137/87; PULSE 97; RESP 18; TEMP 37.1; O2SAT 97
[2021-06-17] MEDS: SODIUM CHLORIDE 0.45% 1,000 ML 100 ML IV (23:58)
[2021-06-18 00:08] VITALS: BMI 31.0
--- NOTE | 2021-06-18 00:14 | P.HP_ITS ---
History of Present Illness History of Present Illness Date Patient Seen: 06/17/21 Time Patient Seen: 23:59 Chief complaint: Severe Stomach Cramps, Vomiting Narrative: Mary Jane Ortega is a 50 y.o. 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 She states she has been being worked up for IBS as she has had chronic diarrhea for 3 weeks which worsened in the past 3 days. She states these are stomach cramps, she did vomit for 4 hours of mostly undigested food. She denies fever, but had chills, she needs to chew her food completely, otherwise she will aspirate and has a history of a Shatzky ring. She denies shortness of breath, chest pain, dysurea, constipation or skin lesions or rashes. She does state she has lymphedema of the left arm. She does admit to drinking 3 drinks/day, but has not experienced withdrawal if she has had to suspend her drinking in the past. CT of the abdomen pelvis indicated the followin. Diffuse appearance of colonic thickening with pericolonic stranding most suggestive of diffuse colitis. This could be secondary to infection, inflammation or potentially ischemic. 2. Fat stranding with ill-defined soft tissue density in the right lower quadrant with adjacent subcentimeter lymph nodes. This would be in the expected location of the appendix and appears to represent appendiceal inflammation such as appendicitis. This could be prior appendicitis or secondary inflammation from colitis. 3. Heterogeneous mass with low attenuation in the lower uterine segment extending to the cervix. Appearance is suggestive of a low lying fibroid with either areas of necrosis or superimposed nabothian cysts. Pelvic ultrasound may be helpful for additional evaluation.Patient is afebrile, blood pressure 137/87, heart rate 97, respiratory rate 18, oxygen saturation 97% on room air she weighs 89.9 kg BMI of 31. Her WBC is mildly elevated at 13.7, she has a significant left shift of 11,700, glucose is mildly a they did at 1:31 a.m., liver enzymes are elevated with an AST of 59, ALT 62, lipase is negative, procalcitonin is within normal limits, she does have moderate urinary bacteria meeting criteria for culture, COVID 19 PCR is negative. 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) Situational anxiety ART (stress urinary incontinence, female) Tubular carcinoma of left breast (10/23/17) Surgical History History of bladder suspension procedure Family & Social History Family History Mother Parkinson disease Hypertension Family/Other Cancer Family/Other Cancer Father MVA (motor vehicle accident) Son Migraine Sister Obesity Safety & Behavioral: Feels Safe in Current Yes Environment Been Physically Hurt or No Threatened By a Person Tobacco & Substance use: Smoking Status Smoker, status unknown alcohol intake current alcohol intake frequency 3 or more drinks per day Substance Use Type marijuana Meds Home Medications and Allergies Home Medications Medication Instructions Recorded Confirmed Type fluticasone propionate 50 1 spray INTRANASAL QDAY #0 09/04/17 06/18/21 History mcg/actuation nasal spray,suspension (Flonase Allergy Relief) tamoxifen 20 mg tablet 20 mg PO BEDTIME #30 02/02/18 06/18/21 History lorazepam 1 mg tablet 1 mg PO Q6HP PRN #10 tab 06/15/21 06/18/21 Rx venlafaxine 37.5 mg 37.5 mg PO DAILY #90 cap 06/15/21 06/18/21 Rx capsule,extended release 24 hr gabapentin 300 mg capsule 300 mg PO DAILY 06/17/21 06/18/21 History simethicone 125 mg capsule (Gas-X 125 mg PO BID PRN 06/18/21 06/18/21 History Extra Strength) Allergies Allergy/AdvReac Type Severity Reaction Status Date / Time doxycycline [DOXYCYCLINE] Allergy Severe EXTREME Verified 10/02/20 10:40 CONSTIPATION codeine [CODEINE] Allergy Intermediate VOMITING Verified 10/02/20 10:40 tramadol [TRAMADOL] AdvReac Severe SWELLING Verified 10/02/20 10:40 IN THROAT Review of Systems Review of Systems ROS: Yes All systems reviewed with the patient and are negative except as otherwise documented Exam Vital Signs (past 8 hours): - 06/17/21 16:38 06/17/21 23:11 06/17/21 23:40 Temperature 97.1 F L 99.6 F 99.6 F Pulse Rate 77 96 H 92 H Respiratory Rate 16 12 12 Blood Pressure 134/60 127/66 127/66 Pulse Oximetry 100 98 98 Oxygen Delivery Method Room Air Narrative Exam Narrative: Gen: Alert, oriented, well-developed 50 y.o. female HEENT: normocephalic, atraumatic, conjunctiva clear, sclera non-icteric, oral mucosa pink and moist Neck: supple, full ROM, no JVD, trachea is midline Resp: Lungs CTA, non-labored breathing CV: RRR, no murmur or rubs Abd: soft, diffusely and midly tender, normoactive BTs Skin: multiple tatoos on arms, no lesions or rashes, dry and intact Neuro: Alert and oriented X 4 w/no focal deficits. Speech clear and coherent. Extremities: moves all 4 extremities, is ambulatory, negative Gege?s sign Psyche: normal mood and mildly flat affect Objective Labs Result Diagrams: 06/17/21 17:15 06/17/21 17:15 Labs: Laboratory Results - last 24 hr 06/17/21 06/17/21 06/17/21 16:55 17:15 17:15 WBC 13.7 H RBC 4.42 Hgb 14.2 Hct 41.6 MCV 94.0 MCH 32.2 MCHC 34.2 RDW 12.2 Plt Count 231 Neut % (Auto) 85.8 H Lymph % (Auto) 10.2 L Ida % (Auto) 3.4 Eos % (Auto) 0.3 L Baso % (Auto) 0.3 Neut # (Auto) 09644 H Lymph # (Auto) 1400 Ida # (Auto) 500 Eos # (Auto) 0 Baso # (Auto) 0 Sodium 137 Potassium 3.7 Chloride 104 Carbon Dioxide 22 BUN 11 Creatinine 0.56 Estimated GFR > 60.0 BUN/Creatinine Ratio 19.6 Glucose 131 H Lactate Calcium 9.4 Total Bilirubin 1.1 AST 59 H ALT 62 H Alkaline Phosphatase 63 Total Protein 7.6 Albumin 4.4 Globulin 3.2 Albumin/Globulin Ratio 1.4 Lipase 37 Procalcitonin Urine RBC Urine WBC Ur Squamous Epith Cells Urine Bacteria Urine Mucus Ur Culture Indicated? SARS-CoV-2 (PCR) Negative 06/17/21 06/17/21 06/17/21 17:15 17:15 20:40 WBC RBC Hgb Hct MCV MCH MCHC RDW Plt Count Neut % (Auto) Lymph % (Auto) Ida % (Auto) Eos % (Auto) Baso % (Auto) Neut # (Auto) Lymph # (Auto) Ida # (Auto) Eos # (Auto) Baso # (Auto) Sodium Potassium Chloride Carbon Dioxide BUN Creatinine Estimated GFR BUN/Creatinine Ratio Glucose Lactate 2.5 H Calcium Total Bilirubin AST ALT Alkaline Phosphatase Total Protein Albumin Globulin Albumin/Globulin Ratio Lipase Procalcitonin 0.04 Urine RBC 0-1/hpf Urine WBC 10-30/hpf H Ur Squamous Epith Cells 1-5 /hpf Urine Bacteria Moderate (10-30) H Urine Mucus 1+ H Ur Culture Indicated? Specimen cultured SARS-CoV-2 (PCR) 06/17/21 20:45 WBC RBC Hgb Hct MCV MCH MCHC RDW Plt Count Neut % (Auto) Lymph % (Auto) Ida % (Auto) Eos % (Auto) Baso % (Auto) Neut # (Auto) Lymph # (Auto) Ida # (Auto) Eos # (Auto) Baso # (Auto) Sodium Potassium Chloride Carbon Dioxide BUN Creatinine Estimated GFR BUN/Creatinine Ratio Glucose Lactate Calcium Total Bilirubin AST ALT Alkaline Phosphatase Total Protein Albumin Globulin Albumin/Globulin Ratio Lipase Procalcitonin Urine RBC Urine WBC Ur Squamous Epith Cells Urine Bacteria Urine Mucus Ur Culture Indicated? SARS-CoV-2 (PCR) Negative Assessment & Plan Assessment & Plan narrative: Mary Jane rOtega is placed into observation for further workup and treatment of a presumed sigmoid diverticulitis and questionable appendicitis. 1. Abdominal pain in the setting of sigmoid diverticulitis and suspected appendicitis, acute, present on admission * She is initiated on a loading dose of IV Zosyn 4.5 mg followed by 3.75 mg IV q.6 hours * Normal saline at 100 mL/hour * Clear liquids * Dr. Benavides saw the patient and will determine if he plans to scope her in the am. 2. Suspected UTI, U/A met criteria for cx * Covered by IV zosyn 2. Tubular carcinoma of the left breast * Continue home dose of tamoxifen 20 mg po at bed time * She take gabapentin 300 mg po at bedtime for hot flashes associated with tamoxifen 3. Anxiety/depression * Continue home dose of venlafaxine 37.5 mg po at bedtime VTE prophylaxis: Wells risk score: 1 Bilateral SCDs Consults: Dr. Benavides, General Surgery, consult and involvement is appreciated. Patient is observation status as her stay is not likely to exceed 2 midnights. FEN: IV NS at 100 ml/hour, clears, BMP and magnesium in the am. Dispo: Probable discharge to home Code Status: Full code as discussed with patient who states spouse Andria Ortega, surrogate and POA Scores Wells' Criteria for PE Clinical signs and symptoms of DVT: No PE is #1 Dx or equally likely: No Heart rate > 100: No Immobilization at least 3 days or surg in previous 4 weeks: No History of PE or DVT: No Hemoptysis: No Malignancy w/Treatment within 6 months or palliative: Yes Wells' PE Score total: 1 Quality VTE Deep Vein Thrombosis/Pulmonary Embolism Present on Admission: No MIPS - Admit I confirm the patient?s Advance Care Plan is present, Code status is documented, Surrogate decision maker is in patient?s record [If Yes, STOP here]: Yes
[2021-06-18] MEDS: TAMOXIFEN 10 MG TABLET 20 MG PO (00:33)
[2021-06-18] MEDS: VENLAFAXINE ER 37.5 MG CAP PO (00:33)
[2021-06-18 00:40] LABS: Reflexed Lactate in 2 Hours Y
[2021-06-18] MEDS: GABAPENTIN 300 MG CAPSULE PO (01:05)
[2021-06-18 01:10] LABS: Lactate 2HR (Lactic Acid Rflx) 1.8 mmol/L (0.7-2.1)
--- NOTE | 2021-06-18 02:00 | PC.ADMIT ---
Patient admitted to room 205 per stretcher from ER. Ambulated into bathroom to void and is steady on feet but does reports having fallen in past 3 months. Is alert and oriented with flat affect. Breath sounds CTA with RA sat of 97%. HRR. Denies nausea at this time. BT present and abdomen is soft but tender in bilateral lower quads. States abdominal discomfort is 4/10 but tolerable and declines need for pain meds. Able to move self in bed. Refuses to have SCD's placed. Reports drinking 3 beers daily but denies having ever gone through withdrawal. Fall risk score is high and bed alarm is activated. Oriented to call light and bed controls. [email or web address] Admission Note: The patient,Mary Jane Ortega,50 y/o, was given written information regarding hospital policies, unit procedures and contact persons. Patient's smoking status: Former smoker. Vital Signs - 8 hr 06/17/21 23:11 06/17/21 23:40 06/17/21 23:50 Temperature 99.6 F 99.6 F 98.8 F Pulse Rate 96 H 92 H 97 H Respiratory Rate 12 12 18 Blood Pressure 127/66 127/66 137/87 Pulse Oximetry 98 98 97
[2021-06-18] MEDS: PIPERACILLIN/TAZO 3.375 GM in SODIUM CHLORIDE 0.9% 100 ML 25 ML IV ×2 (02:56→10:32)
[2021-06-18 06:06] LABS: Add Manual Diff / Slide Review NO; Basophils Absolute Auto 100 /uL (0-100); Basophils Percent Auto 0.6 % (0-2); Eosinophils Absolute Auto 0 /uL (0-450); Eosinophils Percent Auto 0.2 % (2-4); Hematocrit 37.4 % (36-46); Hemoglobin 12.5 g/dL (12.0-16.0); Lymphocytes Absolute Auto 1400 /uL (1100-4500); Lymphocytes Percent Auto 14.9 % (25-40); Mean Corpuscular HGB Conc 33.5 % (30-36); Mean Corpuscular Volume 95.6 fL (80-100); Monocytes Absolute Auto 700 /uL (0-900); Monocytes Percent Auto 7.3 % (3-14); Neutrophils Absolute Auto 7300 /uL (1500-7000); Platelet Count 185 X10^3/uL (150-400); Red Blood Cell Count 3.91 X10^6/uL (4.0-5.2); White Blood Cell Count 9.5 X10^3/uL (4.5-11.0)
[2021-06-18 06:19] LABS: Alanine Aminotransferase 50 IU/L (<35); Albumin 3.7 g/dL (3.5-5.0); Albumin Globulin Ratio 1.3 (1.0-2.8); Alkaline Phosphatase 49 U/L (38-126); Aspartate Aminotransferase 41 IU/L (14-36); BUN Creatinine Ratio 13.6 (6-22); Bilirubin Total 1.4 mg/dL (0.2-1.3); Bilirubin Unconjugated 1.3 mg/dL (0.0-1.1); Blood Urea Nitrogen 9 mg/dL (7-17); Calcium 8.4 mg/dL (8.4-10.2); Carbon Dioxide 25 mmol/L (22-32); Chloride 104 mmol/L (98-107); Estimated Glomerular Filt Rate > 60.0 mL/min (>60); Globulin 2.8 g/dL (1.7-4.1); Glucose 105 mg/dL (70-100); HEMOLYSIS < 15 (0-50); Magnesium 1.6 mg/dL (1.6-2.3); Potassium 3.4 mmol/L (3.4-5.1); Sodium 136 mmol/L (137-145); Total Protein 6.5 g/dL (6.3-8.2)
[2021-06-18 08:00] VITALS: O2SAT 97
[2021-06-18] MEDS: ACETAMINOPHEN 325 MG TABLET 650 MG PO ×2 (08:01→13:42)
[2021-06-18] MEDS: PANTOPRAZOLE 40 MG VIAL IV (08:01)
[2021-06-18 09:22] VITALS: BP 118/72; PULSE 75; RESP 16; TEMP 36.5; O2SAT 96
[2021-06-18] MEDS: SODIUM CHLORIDE 0.9% 1,000 ML 100 ML IV (10:32)
--- NOTE | 2021-06-18 13:49 | CM.DANOTE ---
Addendum entered by Dara Bustillos LPN 06/18/21 14:10: Met now with pt and her Andria. Introduced self and role. Pt confirms she is waiting for Dr. Strong to hear what the plan is for her for today. Checked in with Dr. Strong who was on her way to pt's room momentarily. Will follow prn. At this time anticipate that pt will likely be able to go home with outpt followup but will see what Dr. Strong says. Original Note: Discharge Planning/Care Management DCP: assessment: case received, EMR reviewed and discussed in Team Rounds. Dr. Strong at that time noted that etiology of pts symtoms and treatment plan were unclear. Consulting: Dr. Benavides: [facility] PCP: Viral Frey Oncologist: Dr. Quintanilla/[facility] (pt on tamoxifen for treatment of L breast CA) Payer: Federal Admissions status: OBS: thus far: confirmed by SYED Mobley CM Discharge Assessment Start: 06/18/21 13:48 Freq: Status: Active Protocol: Document 06/18/21 13:48 ITV (Rec: 06/18/21 13:49 ITV [id number]) Discharge Planning Assessment Advance Directives? No History Provided By Medical Record Prior Living Arrangements House Household Members spouse Independent with ADL's Yes Is patient alert and oriented? Yes
[2021-06-18 15:00] VITALS: O2SAT 96
[2021-06-18 15:54] VITALS: BP 120/70; PULSE 66; RESP 16; TEMP 35.7; O2SAT 97
--- NOTE | 2021-06-18 15:56 | DIET.PN ---
Dietary Progress Note Assessment: 50y F admitted for colitis referred to nutrition for MNA score of 10 at risk for malnutrition. Pt and spouse in room. Pt being treated for breast cancer at [facility]. Pt has GI doctor but has not been formally dx c IBS, however pt has frequent fluctuations in BMs cycling from urgent gaseous to constipation c pain. Pt not currently limiting diet but states she suffers and feels awful all the time when she eats. Pt identifies onions, garlic, beans, artificial sweeteners, and greasy foods as biggest culprits. Pt has had no N/V/D since admission, tolerated clear liquid diet and is trialing general diet this evening. Pt is within her UBW range, however has had significant ongoing diarrhea the past few weeks. HT: 170.1cm WT:89.9kg UBW:80-94kg over 3y BMI: 31 Labs: AST 41 H, ALT 50 H, lactate 2.5 H MNA:10 Butch: 20 Nutrition Diagnosis:altered GI function r/t acute colitis and possible IBS aeb pt undergoing tx for br Ca, pt intolerant to several high FODMAP foods, lactate 2.5, CT showing colitis. Interventions: 1. Educated pt on diet for acute colitis to focus on lower fat, high protein, Vits A and C and zinc. Discussed variety of foods in this category, pts spouse took notes while discussion happened. 2. Discussed use of probiotics during abx therapy. Pt dislikes yogurt, pt can use kombucha/jasvir, lactofermented veggies, kefir, plant based yogurt, or probiotic pill. Educated pt on not taking probiotic 2h prior or 2h after abx. 3. Discussed low FODMAP diet. Pt would like to follow this diet to get relief from her GI sx once colitis flare settles down. Provided handouts on low FODMAP diet, meal and snack ideas, and website for JODIE Ayala for further resources. Diet Order: general
--- NOTE | 2021-06-18 17:51 | PM.DS.1 ---
History of Present Illness History of Present Illness Chief complaint: Severe Stomach Cramps, Vomiting Narrative: Mary Jane Ortega is a 50 y.o. 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 She states she has been being worked up for IBS as she has had chronic diarrhea for 3 weeks which worsened in the past 3 days. She states these are stomach cramps, she did vomit for 4 hours of mostly undigested food. She denies fever, but had chills, she needs to chew her food completely, otherwise she will aspirate and has a history of a Shatzky ring. She denies shortness of breath, chest pain, dysurea, constipation or skin lesions or rashes. She does state she has lymphedema of the left arm. She does admit to drinking 3 drinks/day, but has not experienced withdrawal if she has had to suspend her drinking in the past. CT of the abdomen pelvis indicated the followin. Diffuse appearance of colonic thickening with pericolonic stranding most suggestive of diffuse colitis. This could be secondary to infection, inflammation or potentially ischemic. 2. Fat stranding with ill-defined soft tissue density in the right lower quadrant with adjacent subcentimeter lymph nodes. This would be in the expected location of the appendix and appears to represent appendiceal inflammation such as appendicitis. This could be prior appendicitis or secondary inflammation from colitis. 3. Heterogeneous mass with low attenuation in the lower uterine segment extending to the cervix. Appearance is suggestive of a low lying fibroid with either areas of necrosis or superimposed nabothian cysts. Pelvic ultrasound may be helpful for additional evaluation.Patient is afebrile, blood pressure 137/87, heart rate 97, respiratory rate 18, oxygen saturation 97% on room air she weighs 89.9 kg BMI of 31. Her WBC is mildly elevated at 13.7, she has a significant left shift of 11,700, glucose is mildly a they did at 1:31 a.m., liver enzymes are elevated with an AST of 59, ALT 62, lipase is negative, procalcitonin is within normal limits, she does have moderate urinary bacteria meeting criteria for culture, COVID 19 PCR is negative. Discharge Providers Provider Date of admission: 06/17/21 22:37 Discharge Date: 06/18/21 Primary care physician: Viral Frey DO Consults: 06/17/21 20:14 Consult to General Surgery Stat Comment: Consulting Provider: Adam Benavides Reason for consultation: Appendicitis Has provider been notified: Yes 06/18/21 00:16 Consult to Dietitian, Adult Routine Comment: Reason For Exam: MNA 10 06/18/21 00:20 Consult to Physician Routine Comment: Consulting Provider: Adam Benavides Reason for consultation: abdominal pain Has provider been notified: Yes Discharge provider: Janneth Strong MD Summary Hospital Course Discharge Diagnosis: 1. Acute Colitis 2. Probable Irritable Bowel Syndrome 3. Chronic Diarrhea 4. Ductal Carcinoma in situ 5. Anxiety 6. Stress urinary incontinence Hospital Course: Patient was admitted to the hospital and placed on antibiotics, bowel rest and fluids. Her abdominal pain was significantly improved and her diarrhea resolved. We were unable to get stool cultures or Cdiff. Her diet was advanced and arrangements were made to discharge her home on oral antibiotics for one week. Patient will follow up with her PCP for a referral to GI for further evaluation Status at Discharge Overall status at discharge: patient is back to baseline Exam Vital Signs (past 8 hours): - 06/18/21 15:54 Temperature 96.3 F L Pulse Rate 66 Respiratory Rate 16 Blood Pressure 120/70 Pulse Oximetry 97 Oxygen Delivery Method Room Air Oxygen Flow Rate 0 Narrative Exam Narrative: pleasant female in no acute distress Resp Other: Lungs : clear to auscultation Cardio Other: RRR Nl Sl S2 GI Other: soft/ mildly tender in right lower quadrant Extrem Other: no edema Objective Labs Result Diagrams: 06/18/21 05:50 06/18/21 05:50 Labs: Laboratory Results - last 24 hr 06/17/21 06/17/21 06/17/21 17:15 17:15 20:40 WBC RBC Hgb Hct MCV MCH MCHC RDW Plt Count Neut % (Auto) Lymph % (Auto) Charlton % (Auto) Eos % (Auto) Baso % (Auto) Neut # (Auto) Lymph # (Auto) Charlton # (Auto) Eos # (Auto) Baso # (Auto) Sodium Potassium Chloride Carbon Dioxide BUN Creatinine Estimated GFR BUN/Creatinine Ratio Glucose Lactate 2.5 H Calcium Magnesium Total Bilirubin Conjugated Bilirubin Unconjugated Bilirubin AST ALT Alkaline Phosphatase Total Protein Albumin Globulin Albumin/Globulin Ratio Procalcitonin 0.04 Urine RBC 0-1/hpf Urine WBC 10-30/hpf H Ur Squamous Epith Cells 1-5 /hpf Urine Bacteria Moderate (10-30) H Urine Mucus 1+ H Ur Culture Indicated? Specimen cultured SARS-CoV-2 (PCR) 06/17/21 06/18/21 06/18/21 20:45 00:42 05:50 WBC 9.5 RBC 3.91 L Hgb 12.5 Hct 37.4 MCV 95.6 MCH 32.0 MCHC 33.5 RDW 12.0 Plt Count 185 Neut % (Auto) 77.0 H Lymph % (Auto) 14.9 L Charlton % (Auto) 7.3 Eos % (Auto) 0.2 L Baso % (Auto) 0.6 Neut # (Auto) 7300 H Lymph # (Auto) 1400 Charlton # (Auto) 700 Eos # (Auto) 0 Baso # (Auto) 100 Sodium Potassium Chloride Carbon Dioxide BUN Creatinine Estimated GFR BUN/Creatinine Ratio Glucose Lactate 1.8 Calcium Magnesium Total Bilirubin Conjugated Bilirubin Unconjugated Bilirubin AST ALT Alkaline Phosphatase Total Protein Albumin Globulin Albumin/Globulin Ratio Procalcitonin Urine RBC Urine WBC Ur Squamous Epith Cells Urine Bacteria Urine Mucus Ur Culture Indicated? SARS-CoV-2 (PCR) Negative 06/18/21 05:50 WBC RBC Hgb Hct MCV MCH MCHC RDW Plt Count Neut % (Auto) Lymph % (Auto) Charlton % (Auto) Eos % (Auto) Baso % (Auto) Neut # (Auto) Lymph # (Auto) Charlton # (Auto) Eos # (Auto) Baso # (Auto) Sodium 136 L Potassium 3.4 Chloride 104 Carbon Dioxide 25 BUN 9 Creatinine 0.66 Estimated GFR > 60.0 BUN/Creatinine Ratio 13.6 Glucose 105 H Lactate Calcium 8.4 Magnesium 1.6 Total Bilirubin 1.4 H Conjugated Bilirubin 0.0 Unconjugated Bilirubin 1.3 H AST 41 H ALT 50 H Alkaline Phosphatase 49 Total Protein 6.5 Albumin 3.7 Globulin 2.8 Albumin/Globulin Ratio 1.3 Procalcitonin Urine RBC Urine WBC Ur Squamous Epith Cells Urine Bacteria Urine Mucus Ur Culture Indicated? 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 Discharge Plan Discharge Plan Patient Disposition: Home Discharge orders & Medications Prescriptions: New amoxicillin-pot clavulanate [Augmentin] 875-125 mg tablet 1 tab PO BID Qty: 14 RF: 0 Continued fluticasone propionate [Flonase Allergy Relief] 9.9 ML spray,suspension 1 spray Intranasal QDAY Qty: 0 RF: 0 tamoxifen 20 MG tablet 20 mg PO BEDTIME Qty: 30 RF: 5 venlafaxine 37.5 mg capsule,extended release 24hr 37.5 mg PO DAILY Qty: 90 RF: 3 lorazepam 1 mg tablet 1 mg PO Q6HP PRN (Reason: anxiety) Qty: 10 RF: 1 gabapentin 300 mg capsule 300 mg PO DAILY RF: 0 simethicone [Gas-X Extra Strength] 125 mg Capsule 125 mg PO BID PRN (Reason: gas) RF: 0 Follow up/Referrals: Viral Frey DO [Primary Care Provider] - Discharge Health Status Multidrug resistant organism: No MDRO Diet/Activity/Treatments Diet: Diet as Tolerated Skin/Wound/Dressing Care Report to your healthcare provider any signs of infection, such as:: chills, fever and increased pain Visit Report/Discharge Packet Instructions: Irritable Bowel Syndrome, Diarrhea, DI for Colitis Discharge Data Primary Care Provider: Viral Frey Attending Provider: Yue Messina VTE Deep Vein Thrombosis/Pulmonary Embolism Present on Admission: No
[2021-06-18 18:25] LABS: Lactate (Lactic Acid) 2.6 mmol/L (0.7-2.1)
--- NOTE | 2021-06-18 19:33 | PC.NURSE ---
Evening Shift/Discharge Note- Patient discharged home. Discharge instructions and education reviewed with patient and signed. IV line removed and bandaid applied. Patient dressed self and packed up all personal belongings. Patient taken by wheelchair by [employer]OR with all personal belongings to private car and spouse by the ER enterance. Rx sent to [facility] per patient request.
[2021-06-18 20:12] LABS: Reflexed Lactate in 2 Hours Y
== END 2021-06-18 18:45 | disposition home or self-care (01) ==
LOC: ED 22:29 → AC 22:38
PROVIDERS: Emergency Medicine; Internal Medicine; Admitting Provider Nurse Practitioner Family; Emergency Provider Emergency Medicine; PCP Family Medicine; Referring Provider Emergency Medicine; Visit Provider Nurse Practitioner Family
DX: K52.9 Noninfective gastroenteritis and colitis, unspecified (principal); F41.9 Anxiety disorder, unspecified; F32.9 Major depressive disorder, single episode, unspecified; N39.3 Stress incontinence (female) (male); D05.12 Intraductal carcinoma in situ of left breast; Z20.822 Contact with and (suspected) exposure to COVID-19
CPT/HCPCS: 36415; 74177; 80048; 80053; 80076; 81003; 81015; 83605; 83690; 83735; 84145; 85025; 87086; 87635; 93005; 93010; 96361; 96365; 96366; 96375; 99234; 99284; C9803; G0378; C9113; J2060; J2405; J2543; J7050; Q9967

== ENCOUNTER → 2021-10-08 18:02 | Outpatient (CLI) | payer BC, SELFPAY ==
--- NOTE | 2021-10-08 | DI.MG.S_ITS ---
BILATERAL DIGITAL SCREENING MAMMOGRAM 3D/2D WITH CAD: 10/08/2021 CLINICAL: Routine screening. Personal history of left breast cancer. Family history of breast cancer. Comparison is made to exams dated: 10/02/2020 mammogram, 09/18/2019 mammogram, and 08/16/2018 mammogram - [facility]. The tissue of both breasts is heterogeneously dense. This may lower the sensitivity of mammography. Current study was also evaluated with a Computer Aided Detection (CAD) system. There are stable benign cysts in the right breast. There also are stable benign calcifications in both breasts. Additionally, there are benign post operative findings in the left breast. No significant masses, calcifications, or other findings are seen in either breast. There has been no significant interval change. IMPRESSION: BENIGN There is no mammographic evidence of malignancy. A 1 year screening mammogram is recommended. This exam was interpreted at Station ID: [id number]. NOTE: For mammograms, a report in lay terms will be sent to the patient. Approximately 15% of breast malignancies will not be visualized mammographically. In the management of a palpable breast mass, a negative mammogram must not discourage biopsy of a clinically suspicious lesion. Electronically Signed By: Charissa mederos/percy:10/11/2021 09:52:36 copy to: FREIDA LI letter sent: Normal Exam ACR BI-RADS Category 2: Benign Finding(s) [id number]
== END ==
PROVIDERS: PCP Family Medicine; Referring Provider Internal Medicine Hematology & Oncology; Visit Provider Internal Medicine Hematology & Oncology
DX: Z12.31 Encounter for screening mammogram for malignant neoplasm of breast (principal); Z85.3 Personal history of malignant neoplasm of breast; Z80.3 Family history of malignant neoplasm of breast
CPT/HCPCS: 77063; 77067

== ENCOUNTER → 2022-08-10 16:40 | Outpatient (CLI) | payer OTHER, BC, SELFPAY ==
--- NOTE | 2022-08-10 16:42 | DI.US.S_ITS ---
PROCEDURE: US PELVIC COMPLETE INDICATIONS: Follow-up ct 1 year ago TECHNIQUE: Real-time scanning was performed of the pelvic organs, with image documentation. Additional endovaginal scanning was necessary due to incomplete visualization of the adnexal and endometrial structures by transabdominal scanning. COMPARISON: Located Within [facility], CT, CT ABDOMEN PELVIS W CON, 06/17/2021, 19:31. Located Within [facility], US, PELVIC COMPLETE, 12/11/2017, 12:56. FINDINGS: Uterus: Anteverted measuring 12.1 x 6.5 x 5.6 cm. The endometrium measures 13 mm. Echotexture is heterogeneous. Last menstrual period was about 2 weeks ago. Multiple large nabothian cysts without solid mass identified. Volume of the uterus is calculated to be 220 cc. Ovaries: Right ovary is not well seen. Left ovary within normal limits measuring 2.5 x 1.8 x 1.8 cm. Other: No pathologic free abdominal or pelvic fluid. IMPRESSION: Endometrium within normal limits in a patient who is not postmenopausal. Mildly enlarged uterus with heterogeneous myometrium is sometimes seen with adenomyosis, for which pelvic MR could be obtained if there is concordant clinical correlation. Multiple large nabothian cysts. No overt signs of cervical mass. Differential includes adenoma malignum, although this is less likely. We strive to produce accurate, complete, and clear reports of imaging services. To assist us in improving patient care, this report was composed using standard report templates and voice recognition software. Therefore, it may contain abnormal punctuation, insertions and/or omissions. Occasional wrong-word or sound-alike substitutions may occur. Though we review the report and make efforts to correct it, we do recommend that the report be read carefully in proper context to recognize any text inaccuracies. Dictated by: Ean Coronado M.D. on 08/11/2022 at 9:51 Approved by: Ean Coronado M.D. on 08/11/2022 at 9:58
== END ==
PROVIDERS: PCP Family Medicine; Referring Provider Family Medicine; Visit Provider Family Medicine
DX: D25.9 Leiomyoma of uterus, unspecified (principal); N85.8 Other specified noninflammatory disorders of uterus
CPT/HCPCS: 76830; 76856

== ENCOUNTER → 2022-08-19 07:18 | Outpatient (CLI) | payer BC, SELFPAY | PROVIDERS: PCP Family Medicine; Visit Provider Nurse Practitioner Family | DX: J02.9 Acute pharyngitis, unspecified (principal) | CPT/HCPCS: 87070 ==

== ENCOUNTER → 2022-11-29 10:00 | Outpatient (CLI) | payer OTHER, SELFPAY ==
--- NOTE | 2022-11-29 10:02 | DI.CT.S_ITS ---
PROCEDURE: CT LUNG LOW DOSE SCREENING INDICATIONS: Follow-up lung nodules seen in CT scan 1 year ago TECHNIQUE: Noncontrast 2.0-2.5 mm thick sections acquired from the pulmonary apices to the posterior costophrenic angles. 7 mm thick axial MIP, and 5 mm coronal and sagittal reformats were then acquired. A low radiation dose technique was utilized. COMPARISON: [facility], CT, CT BHANDARI, 11/28/2017, 15:30. [facility], CT, CT ABDOMEN PELVIS W CON, 06/17/2021, 19:31. FINDINGS: Image quality: Diagnostic, given the low radiation dose technique. Lungs and pleura: There are multiple lung nodules in the right lower lobe. Reference nodules are listed in the following: Nodule 1: 3 mm; series 3, image 218; previously 2 mm. Nodule 2: 4 mm; series 3, image 219; previously 4 mm. Nodule 3: 5 mm; series 3, image 255; previously 4 mm. Nodule 4: 3 mm; series 3, image 274; previously 2 mm. There is a 3 mm calcified nodule in the left lower lobe, compatible with an old granuloma. No acute pulmonary opacities. No pleural effusion or pneumothorax. Mediastinum: Heart size is normal. No pericardial effusion. No mediastinal adenopathy by size criteria. Thoracic aorta and central pulmonary arteries are normal in size. Esophagus is normal in caliber. No hiatal hernia. Bones and chest wall: Postsurgical changes in left breast and axilla. No suspicious bony lesions. No vertebral body compression fractures. No axillary or supraclavicular adenopathy by size criteria. Thyroid gland is normal. Abdomen: Hepatic steatosis. IMPRESSION: 1. Multiple pulmonary nodules are seen in right lower lobe. Several nodules are slightly enlarged since 06/17/2021. The nodules are most likely infectious or inflammatory etiology, but a follow-up CT is suggested in 6-12 months. Please see enclosed follow-up recommendation. 2. Hepatic steatosis. Fleischner Society criteria for SOLID lung nodule followup. Nodule size (mm)Low-risk patientHigh-risk patient?4No follow-up neededFollow-up at 12 mo; if no change, no further follow-up>0-8Howjit-bn CT at 12 mo; if no change, no further follow-up needed.Initial follow-up CT at 6-12 mo, then 18-24 mo if no change. >6-8Initial follow-up CT at 6-12 mo, then 18-24 mo if no change. Initial follow-up CT at 3-6 mo, then 9-12 mo and 24 mo if no change. >8Follow-up CT at 3, 9, 24 mo. Or PET and/or biopsy.Same as for low-risk pts. Dictated by: Nimisha Grant M.D. on 11/29/2022 at 11:12 Approved by: Nimisha Grant M.D. on 11/29/2022 at 11:23
== END ==
PROVIDERS: PCP Family Medicine; Referring Provider Family Medicine; Visit Provider Family Medicine
DX: R91.8 Other nonspecific abnormal finding of lung field (principal); K76.0 Fatty (change of) liver, not elsewhere classified
CPT/HCPCS: 71250

== ENCOUNTER 2023-04-20 12:20 | Day surgery (SDC) | payer OTHER, SELFPAY ==
[2023-04-19 08:07] VITALS: BMI 32.2
[2023-04-20] VITALS (10 sets, daily range): BP systolic 114–146; BP diastolic 76–92; PULSE 80–96; RESP 12–21; TEMP 36.1–37.1; O2SAT 94–100; BMI 32.2
--- NOTE | 2023-04-20 | PATH_ITS ---
[facility] Accession Number: [id number] No. of containers..01 Tissue . 01 Material submitted: . uterus - UTERUS, BILATERAL FALLOPIAN TUBES . 01 Diagnosis: A. Uterus, Bilateral Fallopian Tubes, Hysterectomy and Bilateral Salpingectomy: Myometrium with adenomyosis. Serosa within normal limits. Nonproliferative endometrium with reactive change. Inflamed, focally denuded cervix with benign nabothian cysts in a background of reactive change. Cross-sections of bilateral fallopian tubes with mild acute salpingitis and features of hydrosalpinx. No evidence of dysplasia or malignancy. [facility] 04/28/2023 1145 Local . 01 Electronically signed: . Mirian Ann MD, Pathologist NPI- [id number] . 01 Gross description: . The specimen is received in formalin labeled with the patient's name, , and uterus, bilateral fallopian tubes, and consists of an intact uterus (262 grams, 11.3 SI, 7.9 mL, 5.6 APCM), with attached cervix (3.9 x 3.7 cm), with attached left fimbriated fallopian tube (8.5 x 0.8 cm), and attached right fallopian tube (7.7 x 1.1 cm), with no additional adnexa. . The ectocervix is pink-dobbins and finely granular with a slit-like cervical os measuring 0.9 cm in diameter. The anterior paracervical margin is inked blue while the posterior paracervical margin is inked black. The serosa is dobbins and smooth with a small pinpoint area of hemorrhage measuring 0.4 cm in greatest dimension. The endocervical canal is filled with numerous cystic structures measuring up to 1.8 cm in greatest dimension filled with clear mucoid material with the canal measuring 4.1 cm in length. The endometrium measures 4.7 cm from cornu to cornu, and 5.0 cm in length with dobbins, lush endometrium that averages 0.1 cm thick. They myometrium is pink-dobbins and trabecular measuring up to 2.4 cm thick with a hemorrhagic cavity measuring 0.8 cm in greatest dimension. No additional nodules or lesions are identified. . The left fallopian tube has congested smooth serosa with multiple cystic structures near the fimbriated end measuring 1.8 cm in greatest dimension and filled with clear serous fluid. Sectioning reveals an unremarkable stellate lumen. . The right fallopian tube has congested smooth serosa with multiple small cystic structures measuring up to 0.3 cm in greatest dimension filled with cloudy serous fluid. Sectioning reveals an unremarkable stellate lumen. . Camouflage Assembler sections are submitted as follows: A1: Anterior cervix. A2: Posterior cervix. A3: Anterior full thickness section. A4: Posterior full thickness section. A5: Hemorrhagic cavity. A6: Serosa with hemorrhagic area. A7: Left fallopian tube to include one-half of bisected fimbriae and cross-sections. A8: Right fallopian tube to include one-half of bisected fimbriae and cross-sections. ([id number]) /NAYA 04/21/2023 0913 Local . 01 Pathologist provided ICD-10: R10.2 . 01 CPT . 955270 Specimen Comment: A courtesy copy of this report has been sent to [phone] Performed at: 01 [facility] [address] [place] [address], [place], [place] [id number] MD Itz Mullins MD Phone: [phone]
[2023-04-20] MEDS: LACTATED RINGERS 1,000 ML 100 ML IV ×4 (13:05→23:32)
--- NOTE | 2023-04-20 13:05 | PM.PREOP ---
Pre-operative Note COVID-19 COVID-19 status: Not tested Criteria for continued procedure: Non-surgical alternatives not available or appropriate per current SOC Interval Note History & Physical reviewed/Exam performed by Physician: Yes Changes to H&P: No
[2023-04-20] MEDS: ACETAMINOPHEN IV 1,000 MG/100 ML VIAL 400 MG IV (13:35)
[2023-04-20] MEDS: CEFAZOLIN 2 GM/100 ML PREMIX 100 ML IV (13:35)
--- NOTE | 2023-04-20 14:15 | SUR.OPER ---
Lithotomy on padded OR bed. Whiteface Pad Positioner under torso. Head on pillow, arms padded and tucked at sides. Legs secured in padded yellow fins stirrups.
[2023-04-20] MEDS: BUPIVACAINE 0.5% (PF) 30 ML, EPINEPHrine 0.15 MG INJ (14:23)
--- NOTE | 2023-04-20 15:59 | P.OP_ITS ---
Operative Date/Time/Diagnoses Date of procedure: 04/20/23 Time of procedure: 14:00 Pre-op diagnosis: Abnormal uterine bleeding Unterine enlargement Post-op diagnosis: same Procedure & Clinicians Procedure: Procedures Operation Date: 04/20/23 13:30 Actual Procedure Side Surgeon minerva Laparoscopic Total Hysterectomy w. bilateral salpingectomy Adam Abrams MD Indications: Mary Jane is a 52-year-old , LMP 10/22/2022 who presents in referral from her primary care provider for evaluation of extremely heavy menses, severe dysmenorrhea, and constant pelvic pressure.? Patient was seen 05/2021 with colitis and as part of her evaluation had a pelvic/abdominal CT which showed: FINDINGS:? Image quality:? Excellent.? ? Lung bases:? In the interval since the prior exam, there is a 3 mm nodule in the lateral aspect of the right lower lobe series 3 image 8. A 5 mm nodule is present in the posterior right lower lobe series 3, image 12. Punctate right middle lobe nodule is present on series 3 image.? Heart:? No significant findings. ? ABDOMEN: Liver:? Liver is enlarged with prominent steatosis. Gallbladder:? The gallbladder is unremarkable. Biliary ducts:? Unremarkable.? ? Pancreas:? Unremarkable.? ? Spleen:? Unremarkable.? ? Adrenal Glands:? Unremarkable.? ? Kidneys and Ureters:? Unremarkable.? ? ? Stomach and Bowel:? Stomach, small bowel loops, and colon are nonobstructive.? There is a diffuse appearance of colonic thickening most severe in the ascending, transverse and descending colon with mild pericolonic inflammatory change.? In addition, there is marked thickening in the region of the appendix and inflammatory change as well as scattered subcentimeter lymph nodes.? Normal appearing appendix is not definitively identified.? In addition, Peritoneum:? Minimal dependent pelvic fluid is noted.? No free air.? ? Ventral Wall: ? Fat containing ventral hernia is present with rectus diastasis measuring 1.2 cm. Abdominal Nodes:? No retroperitoneal or mesenteric adenopathy by size criteria.? Vessels:? Aorta and inferior vena cava are normal in size.? ? PELVIS: Pelvic Organs:? Within the lower uterine segment extending to the cervix, there is a heterogeneously enhancing mass measuring 6.3 cm AP x 8.3 cm transverse.? Multiple areas of central low attenuation are identified.? There is no appreciable surrounding inflammatory change. Bladder:? Unremarkable.? ? Pelvic Nodes: No enlarged lymph nodes.? Miscellaneous: No hernias are seen. ? ? ? Bones:? Unremarkable.? IMPRESSION:? ? 1. Diffuse appearance of colonic thickening with pericolonic stranding most suggestive of diffuse colitis.? This could be secondary to infection, inflammation or potentially ischemic. ? 2. Fat stranding with ill-defined soft tissue density in the right lower quadrant with adjacent subcentimeter lymph nodes.? This would be in the expected location of the appendix and appears to represent appendiceal inflammation such as appendicitis.? This could be prior appendicitis or secondary inflammation from colitis.? ? 3.? Heterogeneous mass with low attenuation in the lower uterine segment e xtending to the cervix.? Appearance is suggestive of a low lying fibroid with either areas of necrosis or superimposed nabothian cysts.? Pelvic ultrasound may be helpful for additional evaluation.? ? 4. Right subcentimeter pulmonary nodules, overall nonspecific and not visualized in 2018. The largest measures 5 mm. Recommend interval follow-up as below. A follow-up pelvic US was performed in July 2022 which showed: PROCEDURE:? US PELVIC COMPLETE ? INDICATIONS:? Follow-up ct 1? year ago ? TECHNIQUE:? Real-time scanning was performed of the pelvic organs, with image documentation.? Additional endovaginal scanning was necessary due to incomplete visualization of the adnexal and endometrial structures by transabdominal scanning.? ? COMPARISON:? [facility], CT, CT ABDOMEN PELVIS W CON, 06/17/2021, 19:31.? [facility], US, PELVIC COMPLETE, 12/11/2017, 12:56. ? FINDINGS:? ?? Uterus:? Anteverted measuring 12.1 x 6.5 x 5.6 cm.? The endometrium measures 13 mm.? Echotexture is heterogeneous.? Last menstrual period was about 2 weeks ago. ? Multiple large nabothian cysts without solid mass identified. ? Volume of the uterus is calculated to be 220 cc.? ? Ovaries:? Right ovary is not well seen. Left ovary within normal limits measuring 2.5 x 1.8 x 1.8 cm. ? Other:? No pathologic free abdominal or pelvic fluid. ? ? IMPRESSION:? Endometrium within normal limits in a patient who is not postmenopausal.? Mildly enlarged uterus with heterogeneous myometrium is sometimes seen with adenomyosis, for which pelvic MR could be obtained if there is concordant clinical correlation. ? Multiple large nabothian cysts.? No overt signs of cervical mass.? Differential includes adenoma malignum, although this is less likely. Patient experienced menarche at age 13 and has had regular predictable periods throughout her adult life.? Patient was diagnosed with breast cancer approximately 6 years ago and was on tamoxifen for 4 and half years which she discontinued in January.? Patient had some vasomotor symptoms while she was on the tamoxifen but those symptoms have resolved since coming off.? Cycles are 28-30 days with a total of 5-6 days of flow.? She has least 2 days of spotting followed by 2 and half days of flow and then some continued spotting afterwards.? She also states that she has light spotting occasionally after vaginal sexual activity.? She does not recall her last Pap smear but does have a history of genital warts approximately 30 years ago which were treated and she also apparently had atypical Pap which did not require treatment in resolved spontaneously.? Endometrial biopsy and Pap 12/15/2022 were normal/negative. After discussion of all options, the patient wishes to have definitive therapy in the form of total laparoscopic hysterectomy with bilateral salpingectomy.? She does not wish to have her ovaries removed unless they are visibly abnormal.? Patient presents today for?her scheduled surgery. Surgeon: Adam Abrams Loss Mitigation Specialist: Lizzy Kim Anesthesia Type: General Operative Notes Findings: The uterus is diffusely enlarged and is about 8 weeks in size. Both ovaries appear to be normal. Both fallopian tubes also appeared to be normal. There are 2 isolated spots of what appears to be superficial endometriosis in the posterior with 1 on the right side medial to the uterosacral ligament and 1 on the left also medial to the uterosacral. The upper abdomen was normal to laparoscopic visualization. The appendix was not visualized. Closure Type: primary Specimen(s): left tube, right tube and uterus Applied: catheter Estimated blood loss (mL): 200 Blood products transfused: none Procedure in detail: With the patient in modified dorsal lithotomy position preparations were made by prepping and draping the patient in usual manner for vaginal surgery and insertion of Louise catheter. A pre-surgical time-out was then taken in accordance with [facility] policy. A bivalve speculum was then placed in the vagina and the cervix visualized. The anterior lip of the cervix was then grasped with a single-tooth tenaculum. The uterus was sounded to 9 cm, the endocervical canal dilated slightly, and a VCare uterine manipulator with a large colpotomy cup was placed. The umbilicus was then infiltrated with 0.5% Marcaine with epinephrine. A 1 cm umbilical incision was made transversely and a Veress needle was used to insufflate the abdominal cavity with carbon dioxide. Once the abdomen was appropriately insufflated, a 5 mm trocar and sleeve were then placed through the umbilical incision. The scope was placed through the trocar and the initial assessment of the intra-abdominal contents carried out. A 2nd and 3rd 5 mm port was then placed 1st in the right mid quadrant from then the left mid quadrant by infiltration of the skin and subcutaneous tissues, a 1 cm transverse incision and insertion of the 5 mm bladeless port. Using a 3 puncture technique, the abdomen and pelvis were inspected laparoscopy and photographically documented. Uterus is mobilized with the VCare manipulator and attention turned to the left adnexa. The distal tube was then grasped and the fimbria varicose divided after coagulation with the PowerSeal device. The dissection was then carried out toward the cornua and the fallopian tube amputated. The tube was removed through a 5 mm port and dissection was then carried down using the PowerSeal device so as to divide the utero-ovarian ligament and the round ligament with blunt and sharp dissection of the broad down to the level of the uterine artery. The uterine artery was then skeletonized after development of a bladder flap, coagulated, and divided. Once hemostasis was assured on the left side attention was turned to the right and the tube, utero-ovarian ligament, round ligament, and broad ligament were dissected in a fashion exactly the same as it had been on the left. The right uterine artery was then visualized after skeletonization and coagulated and divided. The uterus was seen to arlette after coagulation of both your arteries and the cup was identified through the vaginal muscularis at its insertion with the body of the cervix. Circumferential excision of the vaginal cup was accomplished without difficulty using monopolar current and the uterus mobilized. The uterus was then removed through the vagina and the vaginal cuff closed [id number] with a series of 0 Vicryl [id number] stitches. He mostasis was excellent, the abdomen was re-insufflated, and the pelvis inspected laparoscopically. The pelvis was inspected for any abnormality or bleeding, and the ureters were each seen to be peristalsing freely. With complete hemostasis assured, the pneumoperitoneum was vented and the ports removed. All of the 5 mm ports were then closed with 4-0 Monocryl on the skin using inverted interrupted sutures. Skin glue was placed and after the glue was dried, an appropriate dressing was applied. The case was then terminated, the patient awakened, and then transferred to PACU after having tolerated the procedure well. Complications: none Post-operative Condition: stable Disposition: PACU Plan for aftercare: Recovery in ambulatory surgery and discharge home tomorrow AM if pain is under control and she is tolerating oral intake well.
[2023-04-20] MEDS: ALBUTEROL/IPRATROPIUM 3 ML AMPUL INH (16:02)
[2023-04-20] MEDS: ONDANSETRON 4 MG/2 ML INJ 8 MG IV ×2 (16:40→23:43)
[2023-04-20] MEDS: ACETAMINOPHEN 325 MG TABLET 650 MG PO ×2 (17:44→23:33)
[2023-04-20] MEDS: MORPHINE 4 MG/ML INJ IV ×2 (18:35→23:33)
--- NOTE | 2023-04-20 19:39 | PC.NURSE ---
Patient A&OX4. VSS, afebrile on RA. She reports pain controlled well with prn morphpine (2mg) and scheduled medications. She is able to tolerate dinner this evening after anti nausea medication. Louise in place. NO bleeding observed to pad. X3 sites c/d/i. Continuous monitoring. LR at 100 ml/hr
[2023-04-20] MEDS: KETOROLAC 30 MG/ML VIAL IV (21:08)
[2023-04-20] MEDS: LORazepam 1 MG TABLET PO (23:43)
[2023-04-21 05:10] VITALS: BP 130/89; PULSE 75; RESP 21; TEMP 36.4; O2SAT 99
[2023-04-21] MEDS: ACETAMINOPHEN 325 MG TABLET 650 MG PO (05:18)
[2023-04-21] MEDS: KETOROLAC 30 MG/ML VIAL IV ×2 (05:19→09:18)
[2023-04-21 06:41] LABS: Add Manual Diff / Slide Review NO; Basophils Absolute Auto 100 /uL (0-100); Basophils Percent Auto 0.7 % (0-2); Eosinophils Absolute Auto 0 /uL (0-450); Eosinophils Percent Auto 0.1 % (2-4); Hematocrit 36.2 % (36-46); Hemoglobin 12.6 g/dL (12.0-16.0); Lymphocytes Absolute Auto 1100 /uL (1100-4500); Lymphocytes Percent Auto 12.2 % (25-40); Mean Corpuscular HGB Conc 34.8 % (30-36); Mean Corpuscular Hemoglobin 32.4 PG (26-34); Mean Corpuscular Volume 93.2 fL (80-100); Monocytes Absolute Auto 600 /uL (0-900); Monocytes Percent Auto 7.2 % (3-14); Neutrophils Absolute Auto 7200 /uL (1500-7000); Neutrophils Percent Auto 79.8 % (50-75); Platelet Count 214 X10^3/uL (150-400); Red Blood Cell Count 3.88 X10^6/uL (4.0-5.2); Red Cell Distribution Width 12.4 % (11.6-14.8)
--- NOTE | 2023-04-21 07:03 | PC.NURSE ---
Louise catheter removed at 0525. Small amount of serosanguinous drainage in pad.
[2023-04-21 08:34] VITALS: BP 115/70; PULSE 79; RESP 16; TEMP 36.6; O2SAT 97
[2023-04-21] MEDS: DOCUSATE 100 MG CAPSULE 200 MG PO (08:36)
[2023-04-21] MEDS: VENLAFAXINE ER 37.5 MG CAP PO (08:36)
--- NOTE | 2023-04-21 08:57 | CM.DANOTE ---
DCP: Case received, EMR reviewed and met with patient. Spouse, Andria, was at bedside. Completed DCP assessment with information currently available. Patient is a 52 year old female who admitted yesterday morning to the care of Dr. Matos. PCP: Dr. Frey. Payer: confirmed: [facility] Patient came to the hospital via private vehicle for a surgical procedure. Patient had laparoscopic total hysterectomy with bilateral salpingectomy. Patient has history of abnormal uterine bleeding. Met with patient in her room, spouse at bedside. Patient was laying in bed, alert and oriented. She resides with her spouse here in [place]. She is independent. P: DCP to continue to follow. Patient should be able to go home when deemed medically stable. Tess Acuña RN/Metal Numerical Tool Programmer Discharge Planning/Care Management CM Discharge Assessment Start: 04/21/23 08:56 Freq: Status: Active Protocol: Document 04/21/23 08:56 (Rec: 04/21/23 08:57 [id number]) Discharge Planning Assessment Assigned .Net Developer Tess Acuña RN/Metal Numerical Tool Programmer Advance Directives? No History Provided By Patient,Medical Record Prior Living Arrangements House Household Members spouse,children Type of transporation used prior to Drives own vehicle admit Independent with ADL's Yes Is patient alert and oriented? Yes Caregiver for Another No Barriers to Discharge No Discharge Plan Home Transportation Arrangement Spouse Referrals Initiated None needed Whiteboard Updated in Patient Room with Yes name and ext. # of .Net Developer Review Status In Process Next Review Type Continued Stay Review Pre-Anesthesia Assessment Start: 04/19/23 08:07 Freq: Status: Complete Protocol: Document 04/19/23 08:07 [facility] (Rec: 04/19/23 08:21 [facility] [id number]) Pre-Anesthesia Assessment Patient Information Reviewed Via Chart Review Primary Care Provider Viral Frey Seen Specialist in Last 12 Months Yes Specialist Seen [employer] Primary Language Lithuanian Preferred Language Lithuanian Area Attendant Required No Height 5 ft 7 in Weight 206 lb Body Mass Index (BMI) 32.2 Anesthesia Review Requested No Tool Crib Lead No alcohol intake current alcohol intake frequency a few times a week Smoking Status Former smoker Tobacco type pipe,cigars Substance Use Type marijuana Comment Edibles History of Falling (Recent or History of No ) Patient is completely paralyzed or No completely immobile Mental Status Oriented to own ability Is patient on oxygen? No Hx Sleep Apnea No Currently Taking a Beta Zonia No Anti-Coagulant Therapy No Cardiac Testing No Hx Pacemaker/ICD No Pacemaker Rep Required? No Cardiac Clearance Received Not Applicable Urinary Catheter Present No Hx Urinary Self Catheterization No Diabetes No Patient No Lactating No Received a COVID vaccine? Yes Marital Status Lives With spouse,children Patient Discharge Plan Description Return Home Do You Have Any Spiritual Beliefs That No May Affect Your HC Choices? Do You Have Any Cultural Practices That No May Affect Your HC Choices? Emergency Contact Name Andria Ortega Emergency Contact Advance Directives? No Power of Hospice Executive Director Yes Power of Hospice Executive Director Name Andria Ortega Power of Hospice Executive Director Phone Number see above
--- NOTE | 2023-04-21 10:02 | PM.DS.1 ---
History of Present Illness History of Present Illness Date Patient Seen: 04/21/23 Time Patient Seen: 10:02 Date of Onset of Symptoms: 04/21/23 Chief complaint: Abnormal uterine bleeding, enlarged uterus Narrative: Mary Jane is a 52-year-old , LMP 10/22/2022 who presents in referral from her primary care provider for evaluation of extremely heavy menses, severe dysmenorrhea, and constant pelvic pressure.? Patient was seen 05/2021 with colitis and as part of her evaluation had a pelvic/abdominal CT which showed: FINDINGS:? Image quality:? Excellent.? ? Lung bases:? In the interval since the prior exam, there is a 3 mm nodule in the lateral aspect of the right lower lobe series 3 image 8. A 5 mm nodule is present in the posterior right lower lobe series 3, image 12. Punctate right middle lobe nodule is present on series 3 image.? Heart:? No significant findings. ? ABDOMEN: Liver:? Liver is enlarged with prominent steatosis. Gallbladder:? The gallbladder is unremarkable. Biliary ducts:? Unremarkable.? ? Pancreas:? Unremarkable.? ? Spleen:? Unremarkable.? ? Adrenal Glands:? Unremarkable.? ? Kidneys and Ureters:? Unremarkable.? ? ? Stomach and Bowel:? Stomach, small bowel loops, and colon are nonobstructive.? There is a diffuse appearance of colonic thickening most severe in the ascending, transverse and descending colon with mild pericolonic inflammatory change.? In addition, there is marked thickening in the region of the appendix and inflammatory change as well as scattered subcentimeter lymph nodes.? Normal appearing appendix is not definitively identified.? In addition, Peritoneum:? Minimal dependent pelvic fluid is noted.? No free air.? ? Ventral Wall: ? Fat containing ventral hernia is present with rectus diastasis measuring 1.2 cm. Abdominal Nodes:? No retroperitoneal or mesenteric adenopathy by size criteria.? Vessels:? Aorta and inferior vena cava are normal in size.? ? PELVIS: Pelvic Organs:? Within the lower uterine segment extending to the cervix, there is a heterogeneously enhancing mass measuring 6.3 cm AP x 8.3 cm transverse.? Multiple areas of central low attenuation are identified.? There is no appreciable surrounding inflammatory change. Bladder:? Unremarkable.? ? Pelvic Nodes: No enlarged lymph nodes.? Miscellaneous: No hernias are seen. ? ? ? Bones:? Unremarkable.? IMPRESSION:? ? 1. Diffuse appearance of colonic thickening with pericolonic stranding most suggestive of diffuse colitis.? This could be secondary to infection, inflammation or potentially ischemic. ? 2. Fat stranding with ill-defined soft tissue density in the right lower quadrant with adjacent subcentimeter lymph nodes.? This would be in the expected location of the appendix and appears to represent appendiceal inflammation such as appendicitis.? This could be prior appendicitis or secondary inflammation from colitis.? ? 3.? Heterogeneous mass with low attenuation in the lower uterine segment extending to the cervix.? Appearance is suggestive of a low lying fibroid with either areas of necrosis or superimposed nabothian cysts.? Pelvic ultrasound may be helpful for additional evaluation.? ? 4. Right subcentimeter pulmonary nodules, overall nonspecific and not visualized in 2018. The largest measures 5 mm. Recommend interval follow-up as below. A follow-up pelvic US was performed in July 2022 which showed: PROCEDURE:? US PELVIC COMPLETE ? INDICATIONS:? Follow-up ct 1? year ago ? TECHNIQUE:? Real-time scanning was performed of the pelvic organs, with image documentation.? Additional endovaginal scanning was necessary due to incomplete visualization of the adnexal and endometrial structures by transabdominal scanning.? ? COMPARISON:? [facility], CT, CT ABDOMEN PELVIS W CON, 06/17/2021, 19:31.? [facility], US, PELVIC COMPLETE, 12/11/2017, 12:56. ? FINDINGS:? ?? Uterus:? Anteverted measuring 12.1 x 6.5 x 5.6 cm.? The endometrium measures 13 mm.? Echotexture is heterogeneous.? Last menstrual period was about 2 weeks ago. ? Multiple large nabothian cysts without solid mass identified. ? Volume of the uterus is calculated to be 220 cc.? ? Ovaries:? Right ovary is not well seen. Left ovary within normal limits measuring 2.5 x 1.8 x 1.8 cm. ? Other:? No pathologic free abdominal or pelvic fluid. ? ? IMPRESSION:? Endometrium within normal limits in a patient who is not postmenopausal.? Mildly enlarged uterus with heterogeneous myometrium is sometimes seen with adenomyosis, for which pelvic MR could be obtained if there is concordant clinical correlation. ? Multiple large nabothian cysts.? No overt signs of cervical mass.? Differential includes adenoma malignum, although this is less likely. Patient experienced menarche at age 13 and has had regular predictable periods throughout her adult life.? Patient was diagnosed with breast cancer approximately 6 years ago and was on tamoxifen for 4 and half years which she discontinued in January.? Patient had some vasomotor symptoms while she was on the tamoxifen but those symptoms have resolved since coming off.? Cycles are 28-30 days with a total of 5-6 days of flow.? She has least 2 days of spotting followed by 2 and half days of flow and then some continued spotting afterwards.? She also states that she has light spotting occasionally after vaginal sexual activity.? She does not recall her last Pap smear but does have a history of genital warts approximately 30 years ago which were treated and she also apparently had atypical Pap which did not require treatment in resolved spontaneously.? Endometrial biopsy and Pap 12/15/2022 were normal/negative. After discussion of all options, the patient wishes to have definitive therapy in the form of total laparoscopic hysterectomy with bilateral salpingectomy.? She does not wish to have her ovaries removed unless they are visibly abnormal.? Patient presents today for?her scheduled surgery. Discharge Providers Provider Date of admission: 04/20/2023 Discharge Date: 04/21/23 Primary care physician: Viral Frey DO Discharge provider: Adam Abrams MD Summary Hospital Course Discharge Diagnosis: Abnormal uterine bleeding Uterine enlargement Pelvic pain Adenomyosis (presumptive diagnosis) Hospital Course: Mary Jane was admitted on 04/20/2023 for total laparoscopic hysterectomy with bilateral salpingectomy. Plans were to leave her ovaries in-situ if they were visually normal. She underwent an uneventful total laparoscopic hysterectomy with bilateral salpingectomy on the afternoon of 04/20/2023 and details of that procedure well summarized on the operative note that date. Following surgery the patient has done extremely well with prompt return of bowel and bladder function, she is ambulating independently, tolerating regular diet, and her pain is effectively controlled with oral pain medications. She will be discharged at this time to home in an afebrile normotensive condition after counseling regarding precautionary symptoms, limitations activity, medications, and plans for follow-up which will be in 2 weeks. Medication at discharge will include resumption of all preadmission medications along with hydromorphone 4 mg p.o. q.6 hours as needed for pain, dispense 12 with no refills, Cipro 500 mg p.o. b.i.d. x5 days, dispense 10 with no refills, and Zofran 8 mg ODT q.8 hours as needed for nausea, dispense 10 with no refills. Status at Discharge Cognitive/behavioral status at discharge: oriented Functional status at discharge: independent ambulation Overall status at discharge: patient is progressing back to baseline Time Spent with Patient Time spent: Less than 30 minutes Exam Vital Signs (past 8 hours): - 04/21/23 05:10 04/21/23 08:34 Temperature 97.5 F L 97.9 F Pulse Rate 75 79 Respiratory Rate 21 16 Blood Pressure 130/89 115/70 Pulse Oximetry 99 97 Oxygen Flow Rate 0 Oxygen Delivery Method Room Air Oxygen Flow Rate 0 Const General: cooperative and comfortable Nutritional Appearance: average body habitus Orientation: alert and oriented x3 HENMT Head: normal to inspection, atraumatic and abrasion Ears: hearing grossly normal bilaterally Face and sinus: face symmetric Eyes General: appearance normal, both eyes and all related structures Conjunctivae: conjunctivae normal Sclera: sclerae normal EOM: EOM intact bilaterally Neck Neck: normal visual inspection Resp Effort & Inspection: normal respiratory effort and able to speak in complete sentences Auscultation: clear to auscultation bilaterally Cardio Rate: regular rate Rhythm: regular rhythm Heart Sounds: S1 normal, S2 normal and no murmurs GI Inspection: normal to inspection and incision (Surgical dressings clean and dry) Palpation: soft, no hepatosplenomegaly and tender (Mild, diffuse postsurgical tenderness) External Female Exam: other (No significant bleeding noted) Extrem General: no calf tenderness Psych Appearance: grossly normal Mental Status: mental status grossly normal Speech and Movement: speech and movement normal Mood: congruent mood Affect: normal affect Attitude: cooperative Thought Process: normal Thought Content: normal Judgment: judgment good Objective Labs 04/21/23 06:35 Labs: Laboratory Results - last 24 hr 04/21/23 06:35 WBC 9.0 RBC 3.88 L Hgb 12.6 Hct 36.2 MCV 93.2 MCH 32.4 MCHC 34.8 RDW 12.4 Plt Count 214 Neut % (Auto) 79.8 H Lymph % (Auto) 12.2 L [place] % (Auto) 7.2 Eos % (Auto) 0.1 L Baso % (Auto) 0.7 Neut # (Auto) 7200 H Lymph # (Auto) 1100 [place] # (Auto) 600 Eos # (Auto) 0 Baso # (Auto) 100 PFSH Medical History Chronic diarrhea Depression 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) Pharyngitis Situational anxiety ART (stress urinary incontinence, female) Tubular carcinoma of left breast (10/23/17) Uterine fibroid Surgical History History of bladder suspension procedure Family History Mother Parkinson disease Hypertension Family/Other Cancer Family/Other Cancer Father MVA (motor vehicle accident) Son Migraine Sister Obesity Social History household members: spouse and children Smoking Status: Former smoker second hand exposure: No alcohol intake: current substance use type: marijuana (edibles) 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 Discharge Plan Discharge Plan Patient Disposition: Home Provider Discharge Comment: Please review the written instructions you received when you were discharged from the hospital. Your follow-up appointment after surgery will be 2 weeks from now and I look forward to seeing you then. If however in the meanwhile you have any issues, concerns, or questions, please contact me either through the office phone at [phone], or via the patient portal. Discharge orders & Medications Discharge Orders: Discharge (Order); Ordered 04/21/23 Ordered By: Adam Abrams Prescriptions: New hydromorphone 4 mg Tablet 4 mg PO Q6H PRN (Reason: Pain, Severe (7-10)) Qty: 12 0RF ciprofloxacin HCl [Cipro] 500 mg tablet 500 mg PO Q12H 5 Days Qty: 10 0RF ondansetron 8 mg tablet,disintegrating 8 mg PO Q8H PRN (Reason: nausea and vomiting) Qty: 10 0RF Continued venlafaxine 37.5 mg capsule,extended release 24hr 37.5 mg PO DAILY Qty: 90 3RF loperamide 2 mg tablet 2 mg PO Q6H PRN (Reason: Diarrhea) lorazepam 1 mg tablet 1 mg PO Q6HP PRN (Reason: anxiety) Qty: 10 1RF gabapentin 300 mg capsule 300 mg PO DAILY Rx Instructions: at bedtime simethicone [Gas-X Extra Strength] 125 mg Capsule 125 mg PO BID PRN (Reason: gas) Follow up/Referrals: Viral Frey DO [Primary Care Provider] - Adam Abrams MD [Physician] - Diet/Activity/Treatments Diet: Diet as Tolerated Activity: As tolerated Other treatments: [id number] Tylenol and/or ibuprofen may be used for additional pain relief. [id number] Colace and/or MiraLax may be used as needed for constipation. Skin/Wound/Dressing Care Report to your healthcare provider any signs of infection, such as:: chills, fever, increased pain, unusual drainage and unusual redness Dressing: Dressings should be removed on the morning of 04/22/2003 Visit Report/Discharge Packet Instructions: DI for Hysterectomy, DI for Laparoscopy Stand Alone Forms: Surgery Discharge Discharge Data Primary Care Provider: Viral Frey Attending Provider: Adam Abrams Quality VTE Deep Vein Thrombosis/Pulmonary Embolism Present on Admission: No
--- NOTE | 2023-04-21 11:25 | PC.NURSE ---
Pt is A&OX4 this a.m. she verbalizes pain well controlled, she is able to eat majority of breakfast without c/o n/v. She reports a headache this a.m. which she states resolved with scheduled toradol. She is able to ambulate and void without difficulty in the room. Abdominal incisions c/d/i. She is evaluated by MD Abrams this a.m. and cleared for discharge home with spouse at bedside. She verbalizes understanding of medications, activity, site care, s/sx of infection/complication as well as follow up appointment. She is escorted via w/ch for discharge home with all of her belongings and medication from [facility] at approximately 1045a.m.
== END 2023-04-21 10:50 | disposition home or self-care (01) ==
LOC: OR 12:21 → AC 12:23
PROVIDERS: PCP Family Medicine; Referring Provider Obstetrics & Gynecology; Visit Provider Obstetrics & Gynecology
PROC: 0UT94ZZ Resection of Uterus, Percutaneous Endoscopic Approach (ICD-10-PCS; CPT 58572; principal; 2023-04-20 13:30)
DX: N93.8 Other specified abnormal uterine and vaginal bleeding (principal); N80.03 Adenomyosis of the uterus; N70.01 Acute salpingitis
CPT/HCPCS: 58572; 36415; 85025; J0131; J0171; J0690; J1100; J1170; J1885; J2250; J2270; J2405; J2704; J3010; J3490

== ENCOUNTER → 2023-06-30 14:54 | Outpatient (CLI) | payer OTHER, SELFPAY ==
[2023-04-20 16:33] VITALS: BMI 32.2
[2023-07-04 14:06] LABS: Deamidated Gliadin Ab IgA 3 units (0-19); Deamidated Gliadin Ab IgG 4 units (0-19); Immunoglobulin A,Qn 209 mg/dL (87-352); t-Transglutaminase IgA <2 U/mL (0-3)
== END ==
PROVIDERS: PCP Family Medicine; Referring Provider Family Medicine; Visit Provider Family Medicine
DX: K52.9 Noninfective gastroenteritis and colitis, unspecified (principal)
CPT/HCPCS: 36415; 82784; 83516

== ENCOUNTER → 2023-10-20 08:37 | Outpatient (CLI) | payer OTHER, SELFPAY ==
[2023-04-20 16:33] VITALS: BMI 32.2
--- NOTE | 2023-10-20 08:38 | DI.MG.S_ITS ---
BILATERAL DIGITAL SCREENING MAMMOGRAM 3D/2D WITH CAD: 10/20/2023 CLINICAL: Routine screening. Personal history of left breast cancer. Family history of breast cancer. Comparison is made to exams dated: 10/08/2021 mammogram, 10/02/2020 mammogram, and 09/18/2019 mammogram - [facility]. Both breasts are heterogeneously dense, which may obscure small masses (category c / 51-75% glandular tissue). Current study was also evaluated with a Computer Aided Detection (CAD) system. There are stable benign calcifications in both breasts. There also are benign post operative findings in the left breast. No significant masses, calcifications, or other findings are seen in either breast. There has been no significant interval change. IMPRESSION: BENIGN There is no mammographic evidence of malignancy. A 1 year screening mammogram is recommended. This exam was interpreted at Station ID: [id number]. NOTE: For mammograms, a report in lay terms will be sent to the patient. Approximately 15% of breast malignancies will not be visualized mammographically. In the management of a palpable breast mass, a negative mammogram must not discourage biopsy of a clinically suspicious lesion. Electronically Signed By: Amilcar hernandez/percy:10/20/2023 17:32:30 copy to: FREIDA LI letter sent: Normal Exam ACR BI-RADS Category 2: Benign Finding(s) 3342F
== END ==
PROVIDERS: PCP Family Medicine; Referring Provider Family Medicine; Visit Provider Family Medicine
DX: Z12.31 Encounter for screening mammogram for malignant neoplasm of breast (principal); Z80.3 Family history of malignant neoplasm of breast; Z85.3 Personal history of malignant neoplasm of breast
CPT/HCPCS: 77063; 77067

== ENCOUNTER 2024-04-30 12:15 | Emergency (ER) | payer OTHER, SELFPAY ==
[2023-04-20 16:33] VITALS: BMI 32.2
[2024-04-30 12:19] VITALS: BP 174/80; PULSE 92; RESP 16; TEMP 36.5; O2SAT 99; BMI 30.2
[2024-04-30 15:05] LABS: Add Manual Diff / Slide Review NO; Basophils Absolute Auto 100 /uL (0-100); Basophils Percent Auto 0.8 % (0-2); Eosinophils Absolute Auto 100 /uL (0-450); Eosinophils Percent Auto 0.7 % (2-4); Hematocrit 43.1 % (36-46); Hemoglobin 14.7 g/dL (12.0-16.0); Lymphocytes Absolute Auto 1400 /uL (1100-4500); Lymphocytes Percent Auto 16.4 % (25-40); Mean Corpuscular HGB Conc 34.2 % (30-36); Mean Corpuscular Hemoglobin 31.5 PG (26-34); Mean Corpuscular Volume 92.2 fL (80-100); Monocytes Absolute Auto 400 /uL (0-900); Monocytes Percent Auto 4.9 % (3-14); Neutrophils Absolute Auto 6500 /uL (1500-7000); Neutrophils Percent Auto 77.2 % (50-75); Platelet Count 266 X10^3/uL (150-400); Red Blood Cell Count 4.67 X10^6/uL (4.0-5.2); Red Cell Distribution Width 12.4 % (11.6-14.8); White Blood Cell Count 8.4 X10^3/uL (4.5-11.0)
[2024-04-30 15:19] LABS: Alanine Aminotransferase 28 IU/L (<35); Albumin Globulin Ratio 1.5 (1.0-2.8); Alkaline Phosphatase 72 U/L (38-126); Aspartate Aminotransferase 35 IU/L (14-36); BUN Creatinine Ratio 19.7 (6-22); Blood Urea Nitrogen 14 mg/dL (7-17); Calcium 9.3 mg/dL (8.4-10.2); Carbon Dioxide 30 mmol/L (22-32); Chloride 104 mmol/L (98-107); Estimated Glomerular Filt Rate > 60 mL/min (>60); Globulin 3.4 g/dL (1.7-4.1); Glucose 131 mg/dL (70-100); HEMOLYSIS < 15 (0-50); Lipase 57 U/L (23-300); Potassium 4.4 mmol/L (3.4-5.1); Sodium 138 mmol/L (137-145); Total Protein 8.4 g/dL (6.3-8.2)
[2024-04-30 17:25] VITALS: BP 153/76; PULSE 70; RESP 18; O2SAT 99
[2024-04-30] MEDS: PANTOPRAZOLE 40 MG VIAL IV (18:41)
[2024-04-30 18:42] LABS: Bacteria Urine Many (>30); RBC Urine 0-1/HPF (0-5/HPF); Squamous Epithelial Cell Urine 1-5 /HPF (0-5/HPF); Urine Volume 10mL (spun)
[2024-04-30 18:43] LABS: Culture Indicated Urine Cult Not Indicated; Mucus Urine 1+ (Negative); WBC Urine 1-5/HPF (0-5/HPF)
[2024-04-30] MEDS: SODIUM CHLORIDE 0.9% 1,000 ML 1000 ML IV (18:43)
--- NOTE | 2024-04-30 18:49 | ED.NAVMDI ---
HPI - Nausea/Vomiting/Diarrhea General Chief complaint: Nausea/Vomiting/Diarrhea Stated complaint: V/green bile/mental health Time Seen by Provider: 04/30/24 18:39 Source: patient Mode of arrival: Ambulatory History of Present Illness HPI Narrative: Patient is a 53-year-old female who is here for evaluation of 2 days of vomiting. No diarrhea. She did try some of her son's Zofran at home but it was unsuccessful. No recent travel. No recent antibiotics. No abdominal pain. She stated that she was being followed by GI for evaluation of issues with her esophagus. She was not on any reflux medicines. Related Data Home Medications Medication Instructions Recorded Confirmed gabapentin 300 mg capsule 300 mg PO DAILY 06/17/21 03/11/24 simethicone 125 mg capsule (Gas-X 125 mg PO BID PRN gas 06/18/21 03/11/24 Extra Strength) loperamide 2 mg tablet 2 mg PO Q6H PRN Diarrhea 07/15/22 03/11/24 Previous Rx's Medication Instructions Recorded lorazepam 1 mg tablet 1 mg PO Q6HP PRN anxiety #10 tabs 03/11/24 venlafaxine 75 mg capsule,extended 75 mg PO DAILY #90 caps 03/11/24 release 24 hr ondansetron 4 mg disintegrating 4 mg PO Q6H PRN nausea and 04/30/24 tablet vomiting #10 tabs Allergies Allergy/AdvReac Type Severity Reaction Status Date / Time doxycycline [DOXYCYCLINE] Allergy Severe EXTREME Verified 04/30/24 12:25 CONSTIPATION codeine [CODEINE] Allergy Intermediate VOMITING Verified 04/30/24 12:25 tramadol [TRAMADOL] AdvReac Severe SWELLING Verified 04/30/24 12:25 IN THROAT Review of Systems Review of Systems Narrative: See HPI Patient History Medical History Tinnitus Pharyngitis Uterine fibroid Chronic diarrhea Situational anxiety Tubular carcinoma of left breast (10/23/17) 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 Smoking Status: Former smoker tobacco type: cigarettes alcohol intake frequency: a few times a week Alcohol type: beer Substance Use Type: marijuana Exam Initial Vital Signs Initial Vital Signs: Vital Signs Temperature 97.7 F 04/30/24 12:19 Pulse Rate 92 H 04/30/24 12:19 Respiratory Rate 16 04/30/24 12:19 Blood Pressure 174/80 H 04/30/24 12:19 Pulse Oximetry 99 04/30/24 12:19 Oxygen Delivery Method Room Air 04/30/24 12:19 Const General: cooperative, comfortable and No ill appearing HENMT Head: normal to inspection Resp Effort & Inspection: normal respiratory effort Cardio Rate: regular rate Skin General: no rashes or lesions noted Neuro General: patient alert, patient awake and moves all extremities Extrem General: capillary refill normal Course Orders Ordered: ED Orders 04/30/24 17:47 Urine Microscopic Stat Discontinued Medications Sodium Chloride (Normal Saline 0.9%) 1,000 mls @ 1,000 mls/hr IV BOLUS ONE Stop: 04/30/24 19:03 Last Infusion: 04/30/24 19:26 Dose: Infused Documented By: Admin: 04/30/24 18:43 Dose: 1,000 mls/hr Documented By: ALINE Ondansetron HCl (Ondansetron 4 Mg Odt) 4 mg PO NOW PRN PRN Reason: Nausea And Vomiting Ondansetron HCl (Ondansetron 4 Mg/2 Ml Inj) 4 mg IV NOW PRN PRN Reason: Nausea And Vomiting Ondansetron HCl (Ondansetron 4 Mg Odt Prepack) 1 bottle MISC DIRECTED ONE Stop: 04/30/24 19:38 Last Admin: 04/30/24 19:47 Dose: 1 bottle Documented By: CHELI Pantoprazole Sodium (Pantoprazole 40 Mg Vial) 40 mg IV NOW ONE Stop: 04/30/24 18:05 Last Admin: 04/30/24 18:41 Dose: 40 mg Documented By: [facility] Vital Signs Vital signs: Vital Signs - 8 hr 04/30/24 19:53 Pulse Rate 80 Respiratory Rate 16 Blood Pressure 141/72 H Pulse Oximetry 99 Oxygen Delivery Method Room Air MDM - Nausea/Vomiting/Diarrhea Lab Data Attestation: I reviewed the patient's lab results. 04/30/24 14:44 04/30/24 14:44 Labs: Lab Results 04/30/24 04/30/24 Range/Units 14:44 17:47 WBC 8.4 (4.5-11.0) X10^3/uL RBC 4.67 (4.0-5.2) X10^6/uL Hgb 14.7 (12.0-16.0) g/dL Hct 43.1 (36-46) % MCV 92.2 (80-100) fL MCH 31.5 (26-34) PG MCHC 34.2 (30-36) % RDW 12.4 (11.6-14.8) % Plt Count 266 (150-400) X10^3/uL Neut % (Auto) 77.2 H (50-75) % Lymph % (Auto) 16.4 L (25-40) % [place] % (Auto) 4.9 (3-14) % Eos % (Auto) 0.7 L (2-4) % Baso % (Auto) 0.8 (0-2) % Neut # (Auto) 6500 (9376-8355) /uL Lymph # (Auto) 1400 (7281-3804) /uL [place] # (Auto) 400 (0-900) /uL Eos # (Auto) 100 (0-450) /uL Baso # (Auto) 100 (0-100) /uL Sodium 138 (137-145) mmol/L Potassium 4.4 (3.4-5.1) mmol/L Chloride 104 (98-107) mmol/L Carbon Dioxide 30 (22-32) mmol/L BUN 14 (7-17) mg/dL Creatinine 0.71 (0.52-1.04) mg/dL Estimated GFR > 60 (>60) mL/min BUN/Creatinine Ratio 19.7 (6-22) Glucose 131 H (70-100) mg/dL Calcium 9.3 (8.4-10.2) mg/dL Total Bilirubin 1.0 (0.2-1.3) mg/dL AST 35 (14-36) IU/L ALT 28 (<35) IU/L Alkaline Phosphatase 72 (38-126) U/L Total Protein 8.4 H (6.3-8.2) g/dL Albumin 5.0 (3.5-5.0) g/dL Globulin 3.4 (1.7-4.1) g/dL Albumin/Globulin Ratio 1.5 (1.0-2.8) Lipase 57 (23-300) U/L Urine RBC 0-1/hpf (0-5/HPF) Urine WBC 1-5/hpf (0-5/HPF) Ur Squamous Epith Cells 1-5 /hpf (0-5/HPF) Urine Bacteria Many (>30) H (None) Urine Mucus 1+ H (Negative) Ur Culture Indicated? Cult not indicated Vol Urine Centrifuged 10ml (spun) Urine Dip Bedside Urine Glucose Negative Bedside Urine Bilirubin - Negative Bedside Urine Ketone ++ 40 Urine Specific [place] 1.015 Bedside Urine Occult Blood - Negative Bedside Urine pH 6.0 Bedside Urine Protein +/- 15 Bedside Urine Urobilinogen - Negative Bedside Urine Nitrite - Negative Bedside Urine Leukocytes - Negative Esterase ECG Data Attestation: I personally reviewed and interpreted this ECG as follows: Interpretation: Sinus rhythm Ventricular rate is 73 Normal axis Normal QRS No ST T wave changes MDM Narrative Medical decision making narrative: Labs are unremarkable. Afebrile. Benign exam. Is able to tolerate oral intake after medications and fluids here in the ER. She states she was feeling somewhat better. I do feel based on her presentation today that we can hold on any further radiologic studies. She was given return precautions. She expressed understanding and agreement. Discharge Plan Departure Patient Disposition: Home Clinical Impression: Nausea and vomiting Instructions: Nausea and Vomiting-Adult Activity Restrictions/Additional Instructions: I do recommend that you increase your fluid intake by drinking small amounts more frequently. I do recommend a bland diet to begin with that you can advance as tolerated. Return to the emergency department for new symptoms. Prescriptions: New ondansetron 4 mg tablet,disintegrating 4 mg PO Q6H PRN (Reason: nausea and vomiting) Qty: 10 0RF No Action loperamide 2 mg tablet 2 mg PO Q6H PRN (Reason: Diarrhea) lorazepam 1 mg tablet 1 mg PO Q6HP PRN (Reason: anxiety) Qty: 10 1RF venlafaxine 75 mg capsule,extended release 24hr 75 mg PO DAILY Qty: 90 3RF gabapentin 300 mg capsule 300 mg PO DAILY Rx Instructions: at bedtime simethicone [Gas-X Extra Strength] 125 mg Capsule 125 mg PO BID PRN (Reason: gas) Referrals: Viral Frey DO [Primary Care Provider] - Stand Alone Forms: Patient Portal/API
[2024-04-30] MEDS: ONDANSETRON 4 MG ODT PREPACK 1 BOTTLE MISC (19:47)
[2024-04-30 19:53] VITALS: BP 141/72; PULSE 80; RESP 16; O2SAT 99
== END 2024-04-30 19:53 | disposition home or self-care (01) ==
PROVIDERS: Emergency Medicine; Emergency Provider Emergency Medicine; PCP Family Medicine
DX: R11.2 Nausea with vomiting, unspecified (principal)
CPT/HCPCS: 36415; 80053; 81003; 81015; 83690; 85025; 93005; 96361; 96374; 99284; C9113

== ENCOUNTER → 2025-02-05 17:45 | Outpatient (CLI) | payer OTHER, SELFPAY ==
[2023-04-20 16:33] VITALS: BMI 32.2
--- NOTE | 2025-02-05 17:48 | DI.MG.S_ITS ---
MM screening mammo BI: 02/05/2025. BI-RADS: 2 CLINICAL: 54-year old female for bilateral screening mammogram. No Tyrer-Cuzick risk score calculation due to the patient's personal history of breast cancer. Patient reports a history of left breast carcinoma. Status-post left lumpectomy with radiation therapy and hormonal therapy. No first-degree family history of breast cancer. Current reported family history of breast cancer: paternal aunt. The patient reports testing negative for BRCA gene mutation. The patient had a prior left breast biopsy. PRIOR EXAMS 10/20/2023, 10/08/2021, 10/02/2020, 09/18/2019, 08/16/2018, 06/08/2018, 09/06/2017, 09/04/2017, 08/04/2017, 07/27/2017, 04/14/2016, 08/13/2015. MAMMOGRAPHY TECHNIQUE: 2D and 3D (tomosynthesis) digital mammographic views obtained, with additional images as needed for full coverage. Current study was also evaluated with a Computer Aided Detection (CAD) system. DENSITY C. The breasts are heterogeneously dense, which may obscure small masses. MAMMOGRAPHY FINDINGS Right: Benign-appearing masses and calcification noted on the right. There are no suspicious masses, calcifications, or other findings in the breast. No significant change from comparison. Left: Surgical clips present on the left. Benign-appearing calcification and post-surgical changes noted on the left. There are no suspicious masses, calcifications, or other findings in the breast. No significant change from comparison. IMPRESSION: * No evidence of malignancy with benign findings. RECOMMENDATIONS Bilateral * Annual screening mammography. OVERALL ASSESSMENT CATEGORY BI-RADS-2: Benign. The [employer] recommends annual screening mammography beginning at age 40 for women with average risk of breast cancer. ELECTRONICALLY SIGNED: Ashlyn Ron M.D. on 02/06/2025 at 09:45:30 AM PT Interpreting Station ID: [id number]
== END ==
PROVIDERS: PCP Family Medicine; Referring Provider Family Medicine; Visit Provider Family Medicine
DX: Z12.31 Encounter for screening mammogram for malignant neoplasm of breast (principal); R92.333 Mammographic heterogeneous density, bilateral breasts; R92.1 Mammographic calcification found on diagnostic imaging of breast; Z85.3 Personal history of malignant neoplasm of breast; Z80.3 Family history of malignant neoplasm of breast
CPT/HCPCS: 77063; 77067

== ENCOUNTER → 2025-03-31 15:55 | Outpatient (CLI) | payer OTHER, SELFPAY ==
[2023-04-20 16:33] VITALS: BMI 32.2
--- NOTE | 2025-03-31 15:56 | DI.MRI.S_ITS ---
MR breast BI wo/w con: 03/31/2025. BI-RADS: 2 CLINICAL: 54-year old female for bilateral diagnostic breast MRI. Patient reports a history of left breast carcinoma. Status-post left lumpectomy with radiation therapy and hormonal therapy. No first-degree family history of breast cancer. Current reported family history of breast cancer: paternal aunt. The patient reports testing negative for BRCA gene mutation. The patient had a prior left breast biopsy. PRIOR EXAMS Mammogram(s): 02/05/2025. 17 Other Exams on 10/20/2023, 10/08/2021, 10/02/2020, 09/18/2019, 08/16/2018, 06/08/2018, 09/06/2017, 09/04/2017, 08/04/2017, 07/27/2017, 04/14/2016, 08/13/2015. MRI TECHNIQUE Bilateral breast MRI was performed on a 1.5 Kirsten magnet using a dedicated breast coil with mild compression. Axial T1 and T2 STIR sequences were obtained. Dynamic contrast enhanced VIBRANT fat-suppressed sequences were obtained. Delayed sagittal high resolution or sagittal reconstructed isotropic sequence was also obtained. Subtraction images and maximum intensity projection images were obtained. The study was evaluated using HammerKitd software. Gadavist was injected intravenously: mL. IV Contrast: 20 ml ProHance. FIBROGLANDULAR TISSUE Right: C. Heterogeneous fibroglandular tissue. Left: B. Scattered fibroglandular tissue. BACKGROUND PARENCHYMAL ENHANCEMENT Right: Mild asymmetrical background parenchymal enhancement. Left: Minimal asymmetrical background parenchymal enhancement. BREAST FINDINGS Right: Numerous cysts demonstrate high T1 signal consistent with hemorrhagic or proteinaceous cysts. Benign-appearing cyst or cysts noted. Left: Upper at 12:00, Posterior depth, measuring 1 x 0.5 x 0.5 cm: There is an enhancing mass with kinetic enhancement curve showing medium initial phase and persistent pattern on delayed phase. This mass is incidental. Triangular shape, straight margins. Located on a margin of post surgical change. Most likely scar. Left: Upper Outer at 2:30, Posterior depth: There is a region of post-treatment change with an area of scarring. Surgical clip(s) and/or marker(s) present on the left with benign-appearing post-surgical changes noted. Left: Axilla: Signal void is present correlating to surgical clips from axillary node dissection. CHEST FINDINGS No axillary or internal mammary chain adenopathy. No abnormality seen in the visible portions of the heart, lungs, chest wall, and liver. IMPRESSION: Right * No evidence of malignancy. Left * No evidence of malignancy with benign findings. RECOMMENDATIONS Bilateral * Annual screening mammography. OVERALL ASSESSMENT CATEGORY BI-RADS-2: Benign. ELECTRONICALLY SIGNED: Charissa Levine M.D. on 04/03/2025 at 09:25:57 AM PT Interpreting Station ID: [id number]
== END ==
PROVIDERS: PCP Family Medicine; Referring Provider Family Medicine; Visit Provider Family Medicine
DX: C50.412 Malignant neoplasm of upper-outer quadrant of left female breast (principal); N63.25 Unspecified lump in the left breast, overlapping quadrants; N60.01 Solitary cyst of right breast; R92.331 Mammographic heterogeneous density, right breast; R92.322 Mammographic fibroglandular density, left breast; Z80.3 Family history of malignant neoplasm of breast
CPT/HCPCS: 77049; A9579